=== PATIENT | female | born 1945 | race American Indian/Alaskan Native ===

== ENCOUNTER 2016-12-29 08:35 | Outpatient (CLI) | payer MEDICARE, OTHER ==
[2016-12-29 09:02] LABS: Basophils % (Auto) 0.5 % (0.0-1.8); Eosinophils % (Auto) 2.5 % (0.0-4.3); Hematocrit 39.1 % (30.3-42.9); Hemoglobin 12.9 gm/dl (10.1-14.3); Mean Corpuscular HGB Conc 33 % (30-34); Mean Corpuscular Hemoglobin 32 pg (28-32); Mean Corpuscular Volume 96 fl (79-97); Platelet Count 238 K/mm3 (140-440); Red Blood Count 4.08 M/mm3 (3.65-5.03); White Blood Count 6.6 K/mm3 (4.5-11.0)
[2016-12-29 09:14] LABS: Blood Urea Nitrogen 16 mg/dL (7-17); Calcium 9.3 mg/dL (8.4-10.2); Carbon Dioxide 25 mmol/L (22-30); Glucose 118 mg/dL (65-100)
[2016-12-29 09:15] LABS: Anion Gap 18 mmol/L; Chloride 100.2 mmol/L (98-107); Phosphorous 3.1 mg/dL (2.5-4.5); Potassium 4.1 mmol/L (3.6-5.0); Sodium 139 mmol/L (137-145)
[2017-01-01 07:29] LABS: Vitamin D, 25-OH, Total 18 ng/mL (30-100)
== END 2016-12-29 08:36 | disposition home or self-care (01) ==
LOC: LAB 08:35
PROVIDERS: ATTEND Internal Medicine Nephrology
DX: I12.9 Hypertensive chronic kidney disease with stage 1 through stage 4 chronic kidney disease, or unspecified chronic kidney disease (principal); N18.2 Chronic kidney disease, stage 2 (mild); N28.1 Cyst of kidney, acquired; E55.9 Vitamin D deficiency, unspecified; F17.200 Nicotine dependence, unspecified, uncomplicated
CPT/HCPCS: 36415; 80048; 82040; 82043; 82306; 84100; 85025

== ENCOUNTER 2017-05-03 11:36 | Emergency (ER) | payer MEDICARE, OTHER ==
[2017-05-03 12:24] VITALS: BP 142/69
--- NOTE | 2017-05-03 12:24 | Emergency Department Report ---
Chief Complaint: Extremity Injury, Lower Stated Complaint: POSS FRACTURED ANKLE Time Seen by Provider: 05/03/17 12:22 - HPI History of Present Illness: PT states she tripped down stairs and hurt her left ankle. - ROS Review of Systems: - head injury - loc - Exam Physical Exam: PT is alert and appropriate. + swelling to L ankle MSE screening note: Focused history and physical exam performed. Due to findings the following was ordered: xr ED Disposition for MSE Condition: Stable
--- NOTE | 2017-05-03 13:42 | XRay Report ---
LEFT ANKLE RADIOGRAPHS INDICATION: Pain and swelling, status post fall. COMPARISON: None similar. FINDINGS: AP, lateral and oblique left ankle radiographs demonstrate intact mortise, malleoli and talar dome contour. Slight deformity along the left distal fibular shaft, approximately 4.3 cm cephalad to its tip favored old. Mild diffuse ankle soft tissue swelling though suspected, lateral more than medial. Soft tissue swelling along dorsum of the foot may also be noted. Demineralized bones. CONCLUSION: Mild ankle and foot soft tissue swelling without acute displaced left ankle fracture identified. Left distal fibular shaft may also be correlated for clinically, as described above. Thank you for the opportunity to participate in this patient's care.
--- NOTE | 2017-05-03 14:30 | Emergency Department Report ---
ED Lower Extremity HPI - General Chief Complaint: Extremity Injury, Lower Stated Complaint: POSS FRACTURED ANKLE Time Seen by Provider: 05/03/17 12:22 Source: patient Mode of arrival: Wheelchair Limitations: No Limitations - History of Present Illness Initial Comments: Patient reports she accidentally hit her left foot on the door frame after she suffered a fall down the stairs. She denies LOC MD Complaint: foot injury (LEFT) Onset/Timin -: days(s) Injury: Foot: Left Type of Injury: unknown Place: home Severity: severe Severity scale (0 -10): 10 Improves With: rest Worsens With: weight bearing Context: fall Other Symptoms: other (none) Associated Symptoms: swelling, able to partially bear weight. denies: snap/pop sensation, numbness, tingling, unable to bear weight Treatments Prior to Arrival: other (none) - Related Data Home Medications Medication Instructions Recorded Confirmed Last Taken Clopidogrel Bisulfate [Plavix] 75 mg PO DAILY 12/18/13 12/02/15 12/01/15 75mg Gabapentin [Neurontin] 300 mg PO BID PRN 12/18/13 12/02/15 12/01/15 300mg Lisinopril [Zestril TAB] 20 mg PO DAILY 12/18/13 12/02/15 12/02/15 20mg Temazepam [Restoril] 30 mg PO HS 12/18/13 12/02/15 12/01/15 30mg Vit D3 & K/Berberine HCl/Hops 1 tab PO DAILY 12/18/13 12/02/15 12/01/15 [Ostera Tablet] 1 amLODIPine [Norvasc] 10 mg PO DAILY 12/18/13 12/02/15 12/01/15 10mg traMADol [Ultram 50 MG tab] 100 mg PO DAILY PRN 12/18/13 12/02/15 12/02/15 100mg Albuterol *Only Ed* [Proventil 2.5 mg IH DAILY 02/19/14 12/02/15 12/01/15 0.5% NEBS] 2.5mg Isosorbide Dinitrate 30 mg PO DAILY 12/02/15 12/02/15 12/01/15 30mg Lansoprazole [Prevacid] 30 mg PO DAILY 12/02/15 12/02/15 12/01/15 30mg PARoxetine [Paxil] 20 mg PO DAILY 12/02/15 12/02/15 12/02/15 20mg Pravastatin (Nf) [Pravachol] 20 mg PO DAILY 12/02/15 12/02/15 12/01/15 20mg Allergies Allergy/AdvReac Type Severity Reaction Status Date / Time aspirin AdvReac Vomiting Verified 12/02/15 11:25 Sulfa (Sulfonamide AdvReac Hives;INCREASED Verified 12/18/13 06:28 Antibiotics) HEART RATE ED Review of Systems ROS: Stated complaint: POSS FRACTURED ANKLE Other details as noted in HPI Constitutional: denies: chills, diaphoresis, fever Respiratory: denies: cough, orthopnea, shortness of breath, SOB with exertion, SOB at rest, stridor, wheezing Cardiovascular: denies: chest pain, palpitations, dyspnea on exertion, orthopnea , edema, syncope, paroxysmal nocturnal dyspnea Gastrointestinal: denies: abdominal pain, nausea, vomiting, diarrhea, constipation Musculoskeletal: arthralgia (right ankle). denies: back pain, joint swelling Skin: denies: rash, lesions, change in color Neurological: denies: headache, weakness Psychiatric: denies: anxiety, depression Hematological/Lymphatic: denies: easy bleeding, easy bruising, swollen glands ED Past Medical Hx - Past Medical History Hx Hypertension: Yes Hx Diabetes: (IN PAST ORAL MED DC'D 2 YRS AGO AFTER CHANGING HER DIET) Hx GERD: Yes Hx Liver Disease: No Hx Renal Disease: No Hx Arthritis: Yes Hx Asthma: Yes Hx COPD: Yes - Surgical History Past Surgical History?: Yes Hx Appendectomy: Yes Additional Surgical History: KNEE REPLACEMENT. LUMPECTOMY LT - Social History Smoking Status: Current Every Day Smoker Substance Use Type: None - Medications Home Medications: Home Medications Medication Instructions Recorded Confirmed Last Taken Type Clopidogrel Bisulfate [Plavix] 75 mg PO DAILY 12/18/13 12/02/15 12/01/15 History 75mg Gabapentin [Neurontin] 300 mg PO BID PRN 12/18/13 12/02/15 12/01/15 History 300mg Lisinopril [Zestril TAB] 20 mg PO DAILY 12/18/13 12/02/15 12/02/15 History 20mg Temazepam [Restoril] 30 mg PO HS 12/18/13 12/02/15 12/01/15 History 30mg Vit D3 & K/Berberine HCl/Hops 1 tab PO DAILY 12/18/13 12/02/15 12/01/15 History [Ostera Tablet] 1 amLODIPine [Norvasc] 10 mg PO DAILY 12/18/13 12/02/15 12/01/15 History 10mg traMADol [Ultram 50 MG tab] 100 mg PO DAILY PRN 12/18/13 12/02/15 12/02/15 History 100mg Albuterol *Only Ed* [Proventil 2.5 mg IH DAILY 02/19/14 12/02/15 12/01/15 History 0.5% NEBS] 2.5mg Isosorbide Dinitrate 30 mg PO DAILY 12/02/15 12/02/15 12/01/15 History 30mg Lansoprazole [Prevacid] 30 mg PO DAILY 12/02/15 12/02/15 12/01/15 History 30mg PARoxetine [Paxil] 20 mg PO DAILY 12/02/15 12/02/15 12/02/15 History 20mg Pravastatin (Nf) [Pravachol] 20 mg PO DAILY 12/02/15 12/02/15 12/01/15 History 20mg ED Physical Exam - General Limitations: No Limitations General appearance: alert, in no apparent distress - Head Head exam: Present: atraumatic - Neck Neck exam: Present: normal inspection, full ROM. Absent: tenderness, meningismus, lymphadenopathy, thyromegaly - Respiratory Respiratory exam: Present: normal lung sounds bilaterally. Absent: respiratory distress, wheezes, rales, rhonchi, stridor, chest wall tenderness, accessory muscle use, decreased breath sounds, prolonged expiratory - Cardiovascular Cardiovascular Exam: Present: regular rate, normal rhythm, normal heart sounds. Absent: systolic murmur, diastolic murmur, rubs, gallop - Extremities Exam Extremities exam: Present: normal inspection, full ROM, normal capillary refill. Absent: tenderness, pedal edema, joint swelling - Expanded Lower Extremity Exam Right Hip exam: Present: pelvic stability Lower Leg exam: Present: normal inspection, full ROM. Absent: tenderness, swelling, abrasion, laceration, ecchymosis, deformity, crepidus, erythema, palpable cord, Harman's sign Ankle exam: Present: full ROM, tenderness (medial and lateral), swelling. Absent: abrasion, laceration, ecchymosis, deformity, crepidus, dislocation, erythema, anterior draw sign Foot/Toe exam: Present: normal inspection, full ROM Neuro vascular tendon exam: Present: no vascular compromise. Absent: pulse deficit, abnormal cap refill, motor deficit, sensory deficit, tendon deficit, extremity cold to touch, pallor, abnormal 2-point discrimination, decreased fine /light touch, foot drop, peroneal nerve deficit, significant pain with passive ROM of distal joint Gait: Positive: observed and limited by pain - Back Exam Back exam: Present: normal inspection, full ROM. Absent: CVA tenderness (R), CVA tenderness (L) - Neurological Exam Neurological exam: Present: alert, oriented X3, CN II-XII intact, normal gait, reflexes normal. Absent: motor sensory deficit - Psychiatric Psychiatric exam: Present: normal affect, normal mood - Skin Skin exam: Present: warm, dry, intact, normal color. Absent: rash ED Course Vital Signs 05/03/17 12:20 Temperature 98.5 F Pulse Rate 79 Respiratory 16 Rate Blood Pressure 142/69 O2 Sat by Pulse 98 Oximetry - Reevaluation(s) Reevaluation #1: 05/03/17 14:32 radiology study ordered ED Lower Extremity MDM - Lab Data Vital Signs 05/03/17 12:20 Temperature 98.5 F Pulse Rate 79 Respiratory 16 Rate Blood Pressure 142/69 O2 Sat by Pulse 98 Oximetry - Radiology Data Radiology results: image reviewed LEFT ANKLE RADIOGRAPHS INDICATION: Pain and swelling, status post fall. COMPARISON: None similar. FINDINGS: AP, lateral and oblique left ankle radiographs demonstrate intact mortise, malleoli and talar dome contour. Slight deformity along the left distal fibular shaft, approximately 4.3 cm cephalad to its tip favored old. Mild diffuse ankle soft tissue swelling though suspected, lateral more than medial. Soft tissue swelling along dorsum of the foot may also be noted. Demineralized bones. CONCLUSION: Mild ankle and foot soft tissue swelling without acute displaced left ankle fracture identified. Left distal fibular shaft may also be correlated for clinically, as described above. - Medical Decision Making During the course of ED, radiology study was ordered. The study revealed mild ankle and foot soft tissue swelling without acute displaced left ankle fracture. Patient was sent home with an ankle splint and referral to follow up with the selective referral given at discharge. Patient reports she has pain medication and crutches at home from a previous injury. - Differential Diagnosis Left Foot Pain, Left Foot Fracture Critical care attestation.: If time is entered above; I have spent that time in minutes in the direct care of this critically ill patient, excluding procedure time. ED Disposition Clinical Impression: Foot pain, left Disposition: DC-01 TO HOME OR SELFCARE Is pt being admited?: No Does the pt Need Aspirin: No Condition: Stable Instructions: Foot Sprain (ED) Additional Instructions: Take medication as directed. Follow up with the selective referral given at discharge. Wear splint for comfort Referrals: LISE RICE MD [Primary Care Provider] - 3-5 Days SHEKHAR GILMORE MD [Staff Physician] - 3-5 Days Time of Disposition: 14:37
== END 2017-05-03 14:49 | disposition home or self-care (01) ==
LOC: ED 11:36
DX: M79.672 Pain in left foot (principal); I10 Essential (primary) hypertension; K21.9 Gastro-esophageal reflux disease without esophagitis; M19.90 Unspecified osteoarthritis, unspecified site; J45.909 Unspecified asthma, uncomplicated; F17.200 Nicotine dependence, unspecified, uncomplicated; Z88.2 Allergy status to sulfonamides; Z88.6 Allergy status to analgesic agent; Z79.01 Long term (current) use of anticoagulants; W22.8XXA Striking against or struck by other objects, initial encounter; Y93.89 Activity, other specified; Y99.8 Other external cause status; Y92.009 Unspecified place in unspecified non-institutional (private) residence as the place of occurrence of the external cause

== ENCOUNTER 2017-08-25 10:51 | Outpatient (CLI) | payer MEDICARE, OTHER ==
--- NOTE | 2017-08-25 16:58 | Cat Scan Report ---
FINAL REPORT PROCEDURE: CT ABDOMEN PELVIS WO/W CON TECHNIQUE: Computerized axial tomography of the abdomen and pelvis was performed without contrast followed by computerized axial tomography of the abdomen and pelvis after the IV injection of iodinated nonionic contrast. DLP 2719.50 mGy-cm. HISTORY: Benign essential microscopic hematuria. COMPARISON: No prior studies are available for comparison. FINDINGS: Visualized lower thorax: Coronary artery disease. Bibasilar interlobular septal thickening and ground-glass opacities. Mild left lower lobe bronchiectasis. 5 millimeter left lower lobe pulmonary nodule. Liver: Normal size and attenuation. Spleen: Normal size and attenuation. Gallbladder and biliary system: Normal. Pancreas: Normal. Adrenals: Normal. Kidneys: 3.2 cm low-attenuation lesion off the midpole of the left kidney. Smaller bilateral renal low-attenuation lesions. GI tract: Significant of the distended loop of small bowel in the mid abdomen, which then tapers to a possible transition of narrowed/strictured small bowel although could be possibly nondistended small bowel. More distal small bowel is more normal caliber and remainder of the small bowel appears relatively unremarkable. Thickening of the distal stomach and duodenum. Normal appendix not confidently seen. Cecum distended with stool. Ascending colon demonstrates fatty infiltration of the wall. Colonic diverticulosis. Lymph nodes and mesentery: Normal. Vasculature: Normal. Bladder: Normal. Reproductive Organs: Hysterectomy. Peritoneum: No free fluid. Musculoskeletal structures: Osteopenia. Multilevel osteophytes. Moderate to severe L1-2 disc space narrowing, endplate changes, and vacuum disc change. Slight anterolisthesis. Similar findings at L2-3 with slight retrolisthesis. Grade 1 anterolisthesis at L5-S1. Mild L5-S1 facet arthropathy. Other: Pelvic phleboliths. IMPRESSION: Coronary artery disease. Bibasilar opacities, consider mild pneumonitis or interstitial lung change. 5 millimeter left lower lobe pulmonary nodule. Consider dedicated thoracic imaging for further characterization if there is continued clinical concern. Low-attenuation renal lesions, may represent cyst. Consider confirmation with renal ultrasound. Significantly distended loop of small bowel in the mid abdomen, which may go to a point of stricture, although this could represent nondistended small bowel. Consider focal ileus, cannot exclude obstruction. Consider further evaluation including followup radiographs or CT scan with oral contrast if there is continued clinical concern. Thickening of the distal stomach and duodenum, consider mild gastritis and/or duodenitis. Fatty infiltration of the ascending colon, can be seen with steroid usage or obesity. Colonic diverticulosis.
== END 2017-08-25 10:52 | disposition home or self-care (01) ==
LOC: CT 10:51
PROVIDERS: ATTEND Urology
DX: K57.30 Diverticulosis of large intestine without perforation or abscess without bleeding (principal); R31.1 Benign essential microscopic hematuria; I25.10 Atherosclerotic heart disease of native coronary artery without angina pectoris; J47.9 Bronchiectasis, uncomplicated; R91.1 Solitary pulmonary nodule; N28.89 Other specified disorders of kidney and ureter; K63.89 Other specified diseases of intestine; M85.80 Other specified disorders of bone density and structure, unspecified site; M12.88 Other specific arthropathies, not elsewhere classified, other specified site; F17.200 Nicotine dependence, unspecified, uncomplicated; Z90.710 Acquired absence of both cervix and uterus
CPT/HCPCS: 36415; 74178; 82565; 84520; Q9967

== ENCOUNTER 2017-11-02 15:13 | Outpatient (CLI) | payer MEDICARE, OTHER ==
--- NOTE | 2017-11-02 20:58 | XRay Report ---
FINAL REPORT PROCEDURE: XR SHOULDER BILAT 2+V TECHNIQUE: Three views of each shoulder HISTORY: PAIN IN LEFT RIGHT SHOULDER COMPARISON: No prior studies are available for comparison. FINDINGS: Moderate degenerative changes of the shoulders bilaterally. No evidence of acute fracture seen at this time. Superior lateral humeral defects seen bilaterally. Each humeral head is slightly low lying right greater than left. No fracture IMPRESSION: Degenerative changes with no fracture
== END 2017-11-02 15:14 | disposition home or self-care (01) ==
LOC: XRAY 15:13
PROVIDERS: ATTEND Physical Medicine & Rehabilitation
DX: M19.011 Primary osteoarthritis, right shoulder (principal); M19.012 Primary osteoarthritis, left shoulder

== ENCOUNTER 2018-01-06 11:48 | Outpatient (CLI) | payer MEDICARE, OTHER ==
[2018-01-06 12:36] LABS: Hemoglobin 13.2 gm/dl (10.1-14.3); Mean Corpuscular HGB Conc 33 % (30-34); Mean Corpuscular Hemoglobin 32 pg (28-32); Mean Corpuscular Volume 98 fl (79-97); Platelet Count 211 K/mm3 (140-440); Red Cell Distribution Width 18.4 % (13.2-15.2)
[2018-01-06 12:48] LABS: INR 0.89 (0.87-1.13); Partial Thromboplastin Time 23.9 Sec. (24.2-36.6)
--- NOTE | 2018-01-06 12:55 | XRay Report ---
Chest 2 views: History: COPD. Findings: Normal cardiomediastinal silhouette the trachea is midline. No consolidation, pneumothorax or pleural effusion. Impression: No acute cardiopulmonary findings.
[2018-01-06 12:56] LABS: Calcium 9.5 mg/dL (8.4-10.2); Chol/HDL Ratio 2.61 %
--- NOTE | 2018-01-06 14:46 | Cat Scan Report ---
CT scan of chest without IV contrast: History: Left lower pulmonary nodule. Findings: No endobronchial or mediastinal mass. No mediastinal, hilar or axillary adenopathy. No pleural pericardial effusion. Minimal pleural thickening bilaterally. There is 4 mm pleural-based nodule identified in left lower lobe on series 2 image 79. Mild centrilobular emphysema. Apical scarring and pleural thickening. Impression: A Small noncalcified pulmonary nodule left lung. Centrilobular emphysema.
== END 2018-01-06 11:49 | disposition home or self-care (01) ==
LOC: CT 11:48
PROVIDERS: ATTEND Internal Medicine
DX: J43.9 Emphysema, unspecified (principal); J98.4 Other disorders of lung; R91.1 Solitary pulmonary nodule; I10 Essential (primary) hypertension; Z79.899 Other long term (current) drug therapy
CPT/HCPCS: 36415; 71046; 71260; 80053; 80061; 84443; 85027; 85610; 85730; Q9967

== ENCOUNTER 2019-06-15 12:59 | Outpatient (CLI) | payer MEDICARE, OTHER | END 2019-06-15 13:00 | disposition home or self-care (01) | LOC: LAB 12:59 | PROVIDERS: ATTEND Internal Medicine Nephrology | DX: I12.9 Hypertensive chronic kidney disease with stage 1 through stage 4 chronic kidney disease, or unspecified chronic kidney disease (principal); N18.2 Chronic kidney disease, stage 2 (mild); R31.9 Hematuria, unspecified; E78.00 Pure hypercholesterolemia, unspecified; J44.9 Chronic obstructive pulmonary disease, unspecified; K21.9 Gastro-esophageal reflux disease without esophagitis; Z90.710 Acquired absence of both cervix and uterus | CPT/HCPCS: 87086 ==

== ENCOUNTER 2019-07-13 11:13 | Outpatient (CLI) | payer MEDICARE, OTHER ==
[2019-07-13 12:05] LABS: Albumin 3.8 g/dL (3.9-5); Calcium 9.7 mg/dL (8.4-10.2)
--- NOTE | 2019-07-13 13:41 | Cat Scan Report ---
CT CHEST WITH CONTRAST INDICATION / CLINICAL INFORMATION: MEDIASTINAL LYMPHADENOPATHY R91.1. TECHNIQUE: Axial CT images were obtained through the chest after 100 cc of Omnipaque 300 IV contrast. Sagittal a nd coronal reformatted images. All CT scans at this location are performed using CT dose reduction fo r ALARA by means of automated exposure control. COMPARISON: 01/09/2019 FINDINGS: HEART: No significant abnormality. THORACIC AORTA: No significant abnormality. MEDIASTINUM and VENKAT: No significant abnormality. No mediastinal adenopathy is demonstrated. LUNGS: No acute air space or interstitial disease. Moderate emphysematous changes are noted in the u pper lung zones. PLEURA: No significant pleural effusion. No pneumothorax. Previously described subpleural nodule at t he left lung base is not seen on today's exam. No suspicious pulmonary nodule or mass. SKELETAL SYSTEM: No significant abnormality. UPPER ABDOMEN: Nothing acute. Cholecystectomy changes and 2 left renal cysts. ADDITIONAL FINDINGS: None. IMPRESSION: Emphysematous changes. No thoracic adenopathy or mass is detected. Signer Name: Real Llody Jr, MD Signed: 07/13/2019 1:37 PM Workstation Name: [id number]
== END 2019-07-13 11:14 | disposition home or self-care (01) ==
LOC: CT 11:13
PROVIDERS: ATTEND Internal Medicine
DX: J43.9 Emphysema, unspecified (principal); R91.1 Solitary pulmonary nodule; Z90.49 Acquired absence of other specified parts of digestive tract
CPT/HCPCS: 36415; 71260; 80053; Q9967

== ENCOUNTER 2019-08-07 10:59 | Inpatient (IN) | payer MEDICARE, OTHER ==
--- NOTE | 2019-08-07 11:16 | Emergency Department Report ---
Blank Doc - Documentation Documentation: 73-year-old female that presents with fall while changing the light bulb with LOC. Had headache and neck pain. MD sent patient also for SOB and crackles in lungs. This initial assessment/diagnostic orders/clinical plan/treatment(s) is/are subject to change based on patient's health status, clinical progression and re- assessment by fellow clinical providers in the ED. Further treatment and workup at subsequent clinical providers discretion. Patient/guardians urged not to elope from the ED as their condition may be serious if not clinically assessed and managed. Initial orders include: 1- Patient sent to MAIN ED for further evaluation and treatment 2- labs 3- cervical collar 4- CT head/neck 5- EKG
--- NOTE | 2019-08-07 12:49 | Emergency Department Report ---
HPI - General Chief Complaint: Fall Time Seen by Provider: 08/07/19 11:12 - HPI HPI: 73-year-old female presents to the emergency department with complaint of a headache, left-sided neck pain, back pain after falling off of a ladder from about 5 feet in the air on Wednesday night, 2 days ago. The patient did hit her head after falling backwards and had a brief loss of consciousness. She did not come in at that time as she thought she would improved with rest at home but she still has the previously mentioned symptoms. The patient is not on any blood thinners but is on Plavix. She has a past medical history of arthritis, asthma, COPD on home O2 at night, diet-controlled diabetes, GERD, hypertension. She has not taken anything for her symptoms. The patient was also encouraged to come in to be seen for her breathing and she has been having some crackles since her fall. She has a nebulizer at home that she has tried without much relief. ED Past Medical Hx - Past Medical History Previous Medical History?: Yes Hx Hypertension: Yes Hx Diabetes: (IN PAST ORAL MED DC'D 2 YRS AGO AFTER CHANGING HER DIET) Hx GERD: Yes Hx Liver Disease: No Hx Renal Disease: No Hx Arthritis: Yes Hx Asthma: Yes Hx COPD: Yes - Surgical History Past Surgical History?: Yes Hx Appendectomy: Yes Additional Surgical History: KNEE REPLACEMENT. LUMPECTOMY LT - Social History Smoking Status: Never Smoker Substance Use Type: None - Medications Home Medications: Home Medications Medication Instructions Recorded Confirmed Last Taken Type Clopidogrel Bisulfate [Plavix] 75 mg PO DAILY 12/18/13 08/07/19 12/01/15 History 75 mg Gabapentin [Neurontin] 300 mg PO BID PRN 12/18/13 08/07/19 12/01/15 History 300 mg Lisinopril [Zestril TAB] 20 mg PO DAILY 12/18/13 08/07/19 12/02/15 History 20 mg Temazepam [Restoril] 30 mg PO HS 12/18/13 08/07/19 12/01/15 History 30 mg Vit D3-Vit K/Berberine/Hops 1 tab PO DAILY 12/18/13 08/07/19 12/01/15 History [Ostera Tablet] 1 amLODIPine 10 mg PO DAILY 12/18/13 08/07/19 12/01/15 History 10 mg traMADoL [Ultram 50 MG tab] 100 mg PO DAILY PRN 12/18/13 08/07/19 12/02/15 History 100 mg Albuterol *Only Ed* [Proventil 2.5 mg IH DAILY 02/19/14 08/07/19 12/01/15 History 0.5% NEBS] 2.5mg Isosorbide Dinitrate 30 mg PO DAILY 12/02/15 08/07/19 12/01/15 History 30 mg Lansoprazole [Prevacid] 30 mg PO DAILY 12/02/15 08/07/19 12/01/15 History 30 mg PARoxetine [Paxil] 20 mg PO DAILY 12/02/15 08/07/19 12/02/15 History 20 mg Pravastatin [Pravachol] 20 mg PO DAILY 12/02/15 08/07/19 12/01/15 History 20 mg ED Review of Systems ROS: Stated complaint: FALL OFF LADDER/PAIN Other details as noted in HPI Comment: All other systems reviewed and negative Constitutional: denies: chills, fever Eyes: denies: eye pain, vision change ENT: denies: ear pain, throat pain Respiratory: cough, wheezing Cardiovascular: denies: chest pain, palpitations Gastrointestinal: denies: abdominal pain, vomiting Genitourinary: denies: dysuria, discharge Musculoskeletal: back pain, myalgia Skin: denies: rash, lesions Neurological: headache. denies: numbness, paresthesias Physical Exam - Physical Exam Vital Signs: Vital Signs 08/07/19 08/07/19 11:14 11:44 Temperature 98.4 F Pulse Rate 97 H 85 Respiratory 24 19 Rate Blood Pressure 192/111 Blood Pressure 220/137 [Left] O2 Sat by Pulse 98 97 Oximetry Physical Exam: GENERAL: The patient is well-developed well-nourished. HENT: Normocephalic. Atraumatic. Patient has moist mucous membranes. EYES: Extraocular motions are intact. Pupils equal reactive to light bilaterally. No nystagmus. NECK: Supple. Trachea is midline. There is both midline and paraspinal tenderness to palpation but no step-off or deformity. CHEST/LUNGS: Clear to auscultation. There is no respiratory distress noted. HEART/CARDIOVASCULAR: Regular. There is mild tachycardia. There is no murmur. ABDOMEN: Abdomen is soft, nontender. Patient has normal bowel sounds. There is no abdominal distention. SKIN: Skin is warm and dry. NEURO: The patient is awake, alert, and oriented. The patient is cooperative. The patient has no focal neurologic deficits. Normal speech. Cranial nerves II through XII grossly intact. MUSCULOSKELETAL: There is no tenderness or deformity. There is no limitation range of motion. There is no evidence of acute injury. BACK: There is both midline and bilateral paraspinal thoracic and lumbar tenderness to palpation but no step-off or deformity. ED Course Vital Signs 08/07/19 08/07/19 11:14 11:44 Temperature 98.4 F Pulse Rate 97 H 85 Respiratory 24 19 Rate Blood Pressure 192/111 Blood Pressure 220/137 [Left] O2 Sat by Pulse 98 97 Oximetry - Reevaluation(s) Reevaluation #1: 08/07/19 15:37 While the patient did not have any significant complaint of chest pain through triage, the patient began complaining of some midsternal chest pain while in the emergency department. Patient has very uncontrolled blood pressure. EKG and troponins have been ordered, as well as a d-dimer. ED Medical Decision Making - Lab Data Result diagrams: 08/07/19 12:45 08/07/19 12:45 - EKG Data -: EKG Interpreted by Me EKG shows normal: sinus rhythm (PACs), axis, intervals, QRS complexes, ST-T waves Rate: normal - EKG Data When compared to previous EKG there are: previous EKG unavailable Interpretation: normal EKG - Radiology Data Radiology results: report reviewed, image reviewed interpreted by me: Chest x-ray does not show any acute process. There are no pleural effusions, obvious pneumonia and there is no pneumothorax. XR spine lumbosacral 2-3V INDICATION / CLINICAL INFORMATION: fall, back pain. COMPARISON: 01/08/2016 FINDINGS: BONES/JOINT(S): There is a mild approximately 25% superior endplate compression fracture of L1. This is age-indeterminate but is definitely new compared with 01/08/2016. Vertebral body heights otherwise appear maintained within normal limits. There is similar moderate degenerative disc disease at T12-L1 and L1-L2 with disc height loss and reactive endplate sclerosis and osteophyte formation. There is unchanged grade 1 anterolisthesis of L4 and L5. SOFT TISSUES: No significant abnormality. ADDITIONAL FINDINGS: None. THORACIC SPINE 3 VIEWS INDICATION / CLINICAL INFORMATION: pain with fall. COMPARISON: None available. FINDINGS: VERTEBRAE: No fracture. No significant malalignment. DISC SPACES:No significant abnormality. ADDITIONAL FINDINGS: Osteopenia. IMPRESSION: 1. No significant abnormality. CT cervical spine without contrast INDICATION: LOC with fall. TECHNIQUE: Axial imaging performed through the cervical spine without the use of contrast. Sagittal and coronal reconstructed images were also reviewed. All CT scans at this location are performed using CT dose reduction for ALARA by means of automated exposure control. COMPARISON: None FINDINGS: Alignment: There is fixed mild reversal of normal cervical lordosis with 2 mm retrolisthesis of C3 on C4. Bones: There is no acute osseous abnormality. Anterior fixation devices are present at C4-5 and C5-6 without gross complication. Mild discogenic DJD is seen above and below the levels of the construct and there is mild facet arthropathy. Soft tissues: No acute soft tissue abnormality identified. Incidental note made of bulky atherosclerotic disease in the carotid bulbs. There is also mild emphysema in the lung apices. IMPRESSION: 1. No acute abnormality. 2. Incidental findings as above. CT head without contrast HISTORY: LOC with fall. TECHNIQUE: Axial imaging performed from the skull apex through the skull base without the use of contrast. All CT scans at this location are performed using CT dose reduction for ALARA by means of automated exposure control. COMPARISON: None FINDINGS: Parenchyma: No acute intracranial hemorrhage or parenchymal abnormality. Ventricles: There is mild diffuse brain atrophy with commensurate ventricular enlargement which is likely age appropriate. Soft tissues: Soft tissues including the orbits appear normal. Bones: No acute osseous abnormality. Sinuses: Sinuses and mastoid air cells are clear. IMPRESSION: No acute abnormality. CTA CHEST WITH IV CONTRAST INDICATION: elevated d dimer. Acute onset chest pain with dyspnea TECHNIQUE: Axial CT images were obtained through the chest after injection of 100 mL IV contrast. 3 plane MIP reconstructions were produced. All CT scans at this location are performed using CT dose reduction for ALARA by means of automated exposure control. COMPARISON: None available. FINDINGS: PULMONARY ARTERIES: No pulmonary emboli. AORTA AND ARTERIES: No acute abnormality. MEDIASTINUM: No mass, lymphadenopathy or other significant abnormality. The heart is normal in size without a pericardial effusion. The trachea and main bronchi are patent and normal in caliber. LUNGS: Emphysema with basilar atelectasis.. ADDITIONAL FINDINGS: None. UPPER ABDOMEN: No acute findings. BONES: No significant osseous abnormality. IMPRESSION: 1. No CT evidence for pulmonary embolism. 2. Emphysema with bibasilar opacities likely to be related to atelectasis. - Medical Decision Making This patient initially came in with a complaint of a headache, neck pain and back pain after a fall on Wednesday, 2 days prior to presentation, from a height of about 5 [address] scan of the head and cervical spine were done that did not show any acute processes. X-rays of the thoracic and lumbar spine showed a L1 compression fracture of about 25% height loss. Chest x-ray did not show any pleural effusions, pneumonia, pneumothorax, focal consolidation, or any other acute process. The patient does have a history of hypertension and presents with extremely elevated blood pressure. Part of this may be secondary to her discomfort. She was given labetalol, hydralazine and her blood pressure came down to a slightly more reasonable level. However, while the patient did have this elevated blood pressure, and in the middle of her workup from her trauma, patient began complaining of mid sternal chest pain. It was not reproducible and did not appear consistent with costochondritis. An EKG was done that did not show any signs of ST elevation TX. Troponins and d-dimer is were ordered. Negative troponins 2 thus far. D-dimer was slightly elevated a nd equivocal so CT angiography was repleted that did not show any signs of ST elevation TX. Despite pain medication, the patient still complains of back pain and chest pain. The patient will be admitted to the hospital for further evaluation and treatment was accepted for admission by the hospitalist, Dr. Loredo. - Differential Diagnosis compression fracture, TX, PE, rib fractures Critical Care Time: No Critical care attestation.: If time is entered above; I have spent that time in minutes in the direct care of this critically ill patient, excluding procedure time. ED Disposition Clinical Impression: Acute chest pain, Bronchitis, Hypertensive urgency Compression fracture of L1 vertebra Qualifiers: Encounter type: initial encounter Qualified Code(s): S32.010A - Wedge compression fracture of first lumbar vertebra, initial encounter for closed fracture Disposition: OP ADMIT IP TO THIS HOSP Is pt being admited?: Yes Condition: Fair Time of Disposition: 15:38
--- NOTE | 2019-08-07 12:59 | Cat Scan Report ---
CT head without contrast HISTORY: LOC with fall. TECHNIQUE: Axial imaging performed from the skull apex through the skull base without the use of con trast. All CT scans at this location are performed using CT dose reduction for ALARA by means of aut omated exposure control. COMPARISON: None FINDINGS: Parenchyma: No acute intracranial hemorrhage or parenchymal abnormality. Ventricles: There is mild diffuse brain atrophy with commensurate ventricular enlargement which is l ikely age appropriate. Soft tissues: Soft tissues including the orbits appear normal. Bones: No acute osseous abnormality. Sinuses: Sinuses and mastoid air cells are clear. IMPRESSION: No acute abnormality. Signer Name: Enrique Acevedo MD Signed: 08/07/2019 12:55 PM Workstation Name: [id number]
--- NOTE | 2019-08-07 13:05 | Cat Scan Report ---
CT cervical spine without contrast INDICATION: LOC with fall. TECHNIQUE: Axial imaging performed through the cervical spine without the use of contrast. Sagittal and coronal reconstructed images were also reviewed. All CT scans at this location are performed us ing CT dose reduction for ALARA by means of automated exposure control. COMPARISON: None FINDINGS: Alignment: There is fixed mild reversal of normal cervical lordosis with 2 mm retrolisthesis of C3 o n C4. Bones: There is no acute osseous abnormality. Anterior fixation devices are present at C4-5 and C5- 6 without gross complication. Mild discogenic DJD is seen above and below the levels of the construct and there is mild facet arthr opathy. Soft tissues: No acute soft tissue abnormality identified. Incidental note made of bulky atheroscler otic disease in the carotid bulbs. There is also mild emphysema in the lung apices. IMPRESSION: 1. No acute abnormality. 2. Incidental findings as above. Signer Name: Enrique Acevedo MD Signed: 08/07/2019 1:01 PM Workstation Name: [id number]
[2019-08-07 13:32] LABS: Basophils # (Auto) 0.1 K/mm3 (0.0-0.1); Basophils % (Auto) 0.8 % (0.0-1.8); Eosinophils % (Auto) 0.2 % (0.0-4.3); Hematocrit 40.1 % (30.3-42.9); Hemoglobin 13.6 gm/dl (10.1-14.3); Lymphocytes # (Auto) 1.4 K/mm3 (1.2-5.4); Mean Corpuscular HGB Conc 34 % (30-34); Mean Corpuscular Volume 99 fl (79-97); Monocytes # (Auto) 0.6 K/mm3 (0.0-0.8); Monocytes % (Auto) 8.5 % (0.0-7.3); Red Blood Count 4.04 M/mm3 (3.65-5.03); Red Cell Distribution Width 18.4 % (13.2-15.2)
[2019-08-07 13:41] LABS: INR 0.91 (0.87-1.13)
[2019-08-07 13:43] LABS: Partial Thromboplastin Time 22.1 Sec. (24.2-36.6)
[2019-08-07] MEDS ORDERED: ONDANSETRON 4 MG/2 ML INJ IV ONE (13:55)
[2019-08-07 13:56] LABS: BUN/Creatinine Ratio 18; Blood Urea Nitrogen 16 mg/dL (7-17); Calcium 9.4 mg/dL (8.4-10.2)
[2019-08-07] MEDS ORDERED: hydrALAZINE 20 MG/1 ML INJ IV ONE (13:56)
[2019-08-07 13:57] LABS: Alanine Aminotransferase 18 units/L (7-56); Albumin 3.8 g/dL (3.9-5); Hemolysis Index 34
--- NOTE | 2019-08-07 14:07 | XRay Report ---
CHEST 1 VIEW 08/07/2019 1:15 PM INDICATION / CLINICAL INFORMATION: SOB. COMPARISON: Chest CT on 07/13/2019 FINDINGS: SUPPORT DEVICES: None. HEART / MEDIASTINUM: Normal heart size. Atherosclerosis in the thoracic aorta. LUNGS / PLEURA: No significant pulmonary or pleural abnormality. No pneumothorax. ADDITIONAL FINDINGS: No significant additional findings. IMPRESSION: 1. No acute findings. Signer Name: Kenton Daigle MD Signed: 08/07/2019 2:02 PM Workstation Name: [id number]
--- NOTE | 2019-08-07 14:11 | XRay Report ---
XR spine lumbosacral 2-3V INDICATION / CLINICAL INFORMATION: fall, back pain. COMPARISON: 01/08/2016 FINDINGS: BONES/JOINT(S): There is a mild approximately 25% superior endplate compression fracture of L1. This is age-indeterminate but is definitely new compared with 01/08/2016. Vertebral body heights otherwise a ppear maintained within normal limits. There is similar moderate degenerative disc disease at T12-L1 and L1-L2 with disc height loss and reactive endplate sclerosis and osteophyte formation. There is un changed grade 1 anterolisthesis of L4 and L5. SOFT TISSUES: No significant abnormality. ADDITIONAL FINDINGS: None. Signer Name: Kenton Daigle MD Signed: 08/07/2019 2:07 PM Workstation Name: [id number]
--- NOTE | 2019-08-07 14:12 | XRay Report ---
THORACIC SPINE 3 VIEWS INDICATION / CLINICAL INFORMATION: pain with fall. COMPARISON: None available. FINDINGS: VERTEBRAE: No fracture. No significant malalignment. DISC SPACES:No significant abnormality. ADDITIONAL FINDINGS: Osteopenia. IMPRESSION: 1. No significant abnormality. Signer Name: Reji Cazares MD Signed: 08/07/2019 2:08 PM Workstation Name: [id number]
[2019-08-07 14:15] LABS: Platelet Count 170 K/mm3 (140-440)
[2019-08-07] MEDS ORDERED: MORPHINE 4 MG/1 ML INJ IV ONE (14:15)
[2019-08-07] MEDS ORDERED: IPRATROPIUM/ALBUTEROL SULFATE 3 ML AMPUL.NEB IH ONE (14:30)
--- NOTE | 2019-08-07 15:56 | History and Physical Report ---
History of Present Illness Date of examination: 08/07/19 Date of admission: 08/07/2019 Chief complaint: Difficulty breathing History of present illness: Patient is a 73-year-old female with past medical history of asthma, COPD, diabetes hypertension and GERD who presents to [facility] ER for complaints of fall 2 days ago. Patient reports a 5 foot fall from a ladder while changing a light bulb. She reports hitting her head, and complains of generalized back pain. She has taken [id number] pain medications with mild relief. Patient states that she is more concerned about her difficulty breathing which started after her fall. She has had increased dyspnea on exertion and had increased the use off her home O2 and nebulizer machine which makes the breathing 'better'. Patient states that difficulty breathing is made worse by her cigarette usage. While in the ER today patient states that she had midsternal chest pain due to her increased work of breathing that resolved on its own. Past History Past Medical History: diabetes, hypertension Social history: smoking, full code Family history: CAD, diabetes, hypertension Medications and Allergies Allergies Allergy/AdvReac Type Severity Reaction Status Date / Time aspirin AdvReac Vomiting Verified 12/02/15 11:25 Sulfa (Sulfonamide AdvReac Hives;INCREASED Verified 12/18/13 06:28 Antibiotics) HEART RATE Home Medications Medication Instructions Recorded Confirmed Last Taken Type Clopidogrel Bisulfate [Plavix] 75 mg PO DAILY 12/18/13 12/02/15 12/01/15 History 75 mg Gabapentin [Neurontin] 300 mg PO BID PRN 12/18/13 12/02/15 12/01/15 History 300 mg Lisinopril [Zestril TAB] 20 mg PO DAILY 12/18/13 12/02/15 12/02/15 History 20 mg Temazepam [Restoril] 30 mg PO HS 12/18/13 12/02/15 12/01/15 History 30 mg Vit D3-Vit K/Berberine/Hops 1 tab PO DAILY 12/18/13 12/02/15 12/01/15 History [Ostera Tablet] 1 amLODIPine 10 mg PO DAILY 12/18/13 12/02/15 12/01/15 History 10 mg traMADoL [Ultram 50 MG tab] 100 mg PO DAILY PRN 12/18/13 12/02/15 12/02/15 History 100 mg Albuterol *Only Ed* [Proventil 2.5 mg IH DAILY 02/19/14 12/02/15 12/01/15 History 0.5% NEBS] 2.5mg Isosorbide Dinitrate 30 mg PO DAILY 12/02/15 12/02/15 12/01/15 History 30 mg Lansoprazole [Prevacid] 30 mg PO DAILY 12/02/15 12/02/15 12/01/15 History 30 mg PARoxetine [Paxil] 20 mg PO DAILY 12/02/15 12/02/15 12/02/15 History 20 mg Pravastatin [Pravachol] 20 mg PO DAILY 12/02/15 12/02/15 12/01/15 History 20 mg Review of Systems Constitutional: poor appetite Ears, nose, mouth and throat: no mouth pain, no swelling in mouth, no neck lump Breasts: no pain Cardiovascular: chest pain, shortness of breath, dyspnea on exertion, high blood pressure, no rapid/irregular heart beat Respiratory: cough, wheezing, home oxygen Gastrointestinal: no diarrhea, no constipation, no heartburn Genitourinary Female: no stress incontinence Menstruation: postmenopausal Rectal: no bleeding Musculoskeletal: neck pain, low back pain, fractures, arthritis Integumentary: no rash, no jaundice Neurological: head injury, aphasia, no numbness, no tingling, no seizures, no confusion, no memory loss, no sensory deficit, no loss of vision Psychiatric: no disorientation, no depression, no hopelessness, no anxiety at tacks Endocrine: no increase in ring/shoe/hat size, no fatigue Allergic/Immunologic: wheezing, no angioedema Exam - Constitutional Vitals: Temp Pulse Resp BP Pulse Ox 98.4 F 76 22 179/57 92 08/07/19 11:14 08/07/19 15:15 08/07/19 15:15 08/07/19 15:15 08/07/19 15:15 General appearance: Present: mild distress - EENT Eyes: Present: PERRL, EOM intact ENT: hearing intact - Neck Neck: Present: supple - Respiratory Respiratory effort: accessory muscle use Respiratory: right: diminished, left: rhonchi, wheezing - Cardiovascular Rhythm: regular Heart Sounds: Present: S1 & S2 - Extremities Extremities: pulses intact, Full ROM Peripheral Pulses: within normal limits - Abdominal General gastrointestinal: Present: non-tender Results - Labs CBC & Chem 7: 08/07/19 12:45 08/07/19 12:45 Labs: Laboratory Last Values WBC 6.6 K/mm3 (4.5-11.0) 08/07/19 12:45 RBC 4.04 M/mm3 (3.65-5.03) 08/07/19 12:45 Hgb 13.6 gm/dl (10.1-14.3) 08/07/19 12:45 Hct 40.1 % (30.3-42.9) 08/07/19 12:45 MCV 99 fl (79-97) H 08/07/19 12:45 MCH 34 pg (28-32) H 08/07/19 12:45 MCHC 34 % (30-34) 08/07/19 12:45 RDW 18.4 % (13.2-15.2) H 08/07/19 12:45 Plt Count 170 K/mm3 (140-440) 08/07/19 12:45 Lymph % (Auto) 22.0 % (13.4-35.0) 08/07/19 12:45 [place] % (Auto) 8.5 % (0.0-7.3) H 08/07/19 12:45 Eos % (Auto) 0.2 % (0.0-4.3) 08/07/19 12:45 Baso % (Auto) 0.8 % (0.0-1.8) 08/07/19 12:45 Lymph # 1.4 K/mm3 (1.2-5.4) 08/07/19 12:45 [place] # 0.6 K/mm3 (0.0-0.8) 08/07/19 12:45 Eos # 0.0 K/mm3 (0.0-0.4) 08/07/19 12:45 Baso # 0.1 K/mm3 (0.0-0.1) 08/07/19 12:45 Seg Neutrophils % 68.5 % (40.0-70.0) 08/07/19 12:45 Seg Neutrophils # 4.5 K/mm3 (1.8-7.7) 08/07/19 12:45 PT 12.2 Sec. (12.2-14.9) 08/07/19 12:45 INR 0.91 (0.87-1.13) 08/07/19 12:45 APTT 22.1 Sec. (24.2-36.6) L 08/07/19 12:45 D-Dimer 584.49 ng/mlDDU (0-234) H 08/07/19 15:27 Sodium 141 mmol/L (137-145) 08/07/19 12:45 Potassium 4.0 mmol/L (3.6-5.0) 08/07/19 12:45 Chloride 103.7 mmol/L (98-107) 08/07/19 12:45 Carbon Dioxide 25 mmol/L (22-30) 08/07/19 12:45 Anion Gap 16 mmol/L 08/07/19 12:45 BUN 16 mg/dL (7-17) 08/07/19 12:45 Creatinine 0.9 mg/dL (0.7-1.2) 08/07/19 12:45 Estimated GFR > 60 ml/min 08/07/19 12:45 BUN/Creatinine Ratio 18 % 08/07/19 12:45 Glucose 126 mg/dL (65-100) H 08/07/19 12:45 Calcium 9.4 mg/dL (8.4-10.2) 08/07/19 12:45 Total Bilirubin 0.30 mg/dL (0.1-1.2) 08/07/19 12:45 AST 22 units/L (5-40) 08/07/19 12:45 ALT 18 units/L (7-56) 08/07/19 12:45 Alkaline Phosphatase 78 units/L (35-129) 08/07/19 12:45 Troponin T < 0.010 ng/mL (0.00-0.029) 08/07/19 12:45 NT-Pro-B Natriuret Pep 202.8 pg/mL (0-900) 08/07/19 12:45 Total Protein 7.6 g/dL (6.3-8.2) 08/07/19 12:45 Albumin 3.8 g/dL (3.9-5) L 08/07/19 12:45 Albumin/Globulin Ratio 1.0 % 08/07/19 12:45 Assessment and Plan Assessment and plan: XR spine lumbosacral 2-3V FINDINGS: BONES/JOINT(S): There is a mild approximately 25% superior endplate compression fracture of L1. This is age-indeterminate but is definitely new compared with 01/08/2016. V ertebral body heights otherwise appear maintained within normal limits. There is similar moderate degenerative disc disease at T12-L1 and L1-L2 with disc height loss and reactive endplate sclerosis and osteophyte formation. There is unchanged grade 1 anterolisthesis of L4 and L5. THORACIC SPINE 3 VIEWS ADDITIONAL FINDINGS: Osteopenia. IMPRESSION: 1. No significant abnormality. CT head without contrast FINDINGS: Parenchyma: No acute intracranial hemorrhage or parenchymal abnormality. Ventricles: There is mild diffuse brain atrophy with commensurate ventricular enlargement which is likely age appropriate. Soft tissues: Soft tissues including the orbits appear normal. Bones: No acute osseous abnormality. Sinuses: Sinuses and mastoid air cells are clear. CHEST 1 VIEW IMPRESSION: HEART / MEDIASTINUM: Normal heart size. Atherosclerosis in the thoracic aorta. 1. No acute findings. Plan COPD exacerbation -Empiric abx -Tobacco use disorder, counseling provided -Supplemental oxygen - Steroid, nebs -ABG -Chest Xray L1 Compression Fracture - Pain control -Outpatient followup w/ Ortho Surgery Diabeted Mellitus - monitor blood sugar levels Hypertension - Resume antihypertensive medications DVT prophylaxis - Lovenox -SCD to BLE while in bed, Pt ambulatory Advance Directives: Yes VTE prophylaxis?: Chemical Plan of care discussed with patient/family: Yes
[2019-08-07] MEDS ORDERED: GABAPENTIN 300 MG CAP PO PRN (20:59)
[2019-08-07] MEDS ORDERED: TEMAZEPAM 15 MG CAP PO SCH (22:00)
[2019-08-07] MEDS ORDERED: ALBUTEROL 2.5 MG/3 ML NEBU IH PRN (22:12)
--- NOTE | 2019-08-08 01:39 | Cat Scan Report ---
CTA CHEST WITH IV CONTRAST INDICATION: elevated d dimer. Acute onset chest pain with dyspnea TECHNIQUE: Axial CT images were obtained through the chest after injection of 100 mL IV contrast. 3 plane MIP re constructions were produced. All CT scans at this location are performed using CT dose reduction for ALARA by means of automated exposure control. COMPARISON: None available. FINDINGS: PULMONARY ARTERIES: No pulmonary emboli. AORTA AND ARTERIES: No acute abnormality. MEDIASTINUM: No mass, lymphadenopathy or other significant abnormality. The heart is normal in size w ithout a pericardial effusion. The trachea and main bronchi are patent and normal in caliber. LUNGS: Emphysema with basilar atelectasis.. ADDITIONAL FINDINGS: None. UPPER ABDOMEN: No acute findings. BONES: No significant osseous abnormality. IMPRESSION: 1. No CT evidence for pulmonary embolism. 2. Emphysema with bibasilar opacities likely to be related to atelectasis. Signer Name: Michael Johansen MD Signed: 08/08/2019 1:35 AM Workstation Name: [id number]
[2019-08-08] MEDS: traMADol 50 MG TAB PO PRN ×2 (01:46→09:12)
[2019-08-08] MEDS ORDERED: hydrALAZINE 20 MG/1 ML INJ IV PRN (02:06)
[2019-08-08] MEDS: ONDANSETRON 4 MG/2 ML INJ IV PRN ×2 (02:31→17:06)
[2019-08-08] MEDS ORDERED: amLODIPine 10 MG TAB PO ONE (02:45)
[2019-08-08] MEDS ORDERED: PARoxetine 20 MG TAB PO SCH (10:00)
[2019-08-08] MEDS ORDERED: BERBERINE PO SCH (10:00)
[2019-08-08] MEDS ORDERED: VIT D3 VIT K PO SCH (10:00)
[2019-08-08] MEDS ORDERED: amLODIPine 10 MG TAB PO SCH (10:00)
[2019-08-08] MEDS ORDERED: CLOPIDOGREL 75 MG TAB PO SCH (10:00)
[2019-08-08] MEDS ORDERED: LISINOPRIL 20 MG TAB PO SCH (10:00)
[2019-08-08] MEDS ORDERED: PRAVASTATIN 20 MG TAB PO SCH (10:00)
[2019-08-08] MEDS ORDERED: ISOSORBIDE DINITRATE 10 MG TAB PO SCH (10:00)
[2019-08-08] MEDS ORDERED: HOPS PO SCH (10:00)
--- NOTE | 2019-08-08 14:29 | Progress Note ---
Assessment and Plan Assessment and plan: Patient is a 73-year-old woman with a history of COPD, diabetes, hypertension and GERD who presented to [facility] ED after fall 2 days ago and worsening SOB. * XR spine lumbosacral 2-3V FINDINGS: BONES/JOINT(S): There is a mild approximately 25% superior endplate compression fracture of L1. This is age-indeterminate but is definitely new compared with 01/08/2016. Vertebral body heights otherwise appear maintained within normal limits. There is similar moderate degenerative disc disease at T12-L1 and L1-L2 with disc height loss and reactive endplate sclerosis and osteophyte formation. There is unchanged g rade 1 anterolisthesis of L4 and L5. * THORACIC SPINE 3 VIEWS ADDITIONAL FINDINGS: Osteopenia. IMPRESSION: 1. No significant abnormality. * CT head without contrast: No acute findings * CHEST 1 VIEW 1. No acute findings. Acute on chronic hypoxic respiratory failure, current pulse ox was 87% on 2 liters, improved with nasal suctioning to 90% Acute COPD exacerbation: treat with iv steroids, nebs, o2, abx Tobacco use disorder, counseling provided Traumatic L1 Compression Fracture: Pain control, Outpatient followup w/ Ortho Surgery Diabete Mellitus type 2- monitor blood sugar levels Hypertension- Resume antihypertensive medications DVT prophylaxis- Lovenox History Interval history: Patient was seen and examined. Follow-up on current diagnosis of COPD. No overnight events reported to me. Patient denies any chest pain, nausea/vomiting or severe headaches. Imaging, nursing note, chart, labs and old chart reviewed. Discussed with patient. Hospitalist Physical - Physical exam Narrative exam: Gen: ill appearing, mod. increase accessory muslces, on 02, Awake, Alert, Orientated HEENT: NCAT, EOMI, PERRL, OP Clear Neck: supple, no adenopathy, no thyromegaly, no JVD CVS/Heart: RRR, normal S1S2, pulses present bilaterally Chest/Lungs: diminised bs bilaterallly, Symmetrical chest expansion, good air entry bilaterally GI/Abdomen: soft, NTND, good bowel sounds, no guarding or rebound /Bladder: no suprapubic tenderness, no CVA or paraspinal tenderness Extermity/Skin: no c/c/e, no obvious rash MSK: FROM x 4 Neuro: CN 2-12 grossly intact, no new focal deficits Psych: calm - Constitutional Vitals: Temp Pulse Resp BP Pulse Ox 98.0 F 115 H 20 90/48 94 08/08/19 12:56 08/08/19 12:56 08/08/19 12:56 08/08/19 12:56 08/08/19 12:56 General appearance: Absent: mild distress Results - Labs CBC & Chem 7: 08/07/19 12:45 08/07/19 12:45 Labs: Laboratory Last Values WBC 6.6 K/mm3 (4.5-11.0) 08/07/19 12:45 RBC 4.04 M/mm3 (3.65-5.03) 08/07/19 12:45 Hgb 13.6 gm/dl (10.1-14.3) 08/07/19 12:45 Hct 40.1 % (30.3-42.9) 08/07/19 12:45 MCV 99 fl (79-97) H 08/07/19 12:45 MCH 34 pg (28-32) H 08/07/19 12:45 MCHC 34 % (30-34) 08/07/19 12:45 RDW 18.4 % (13.2-15.2) H 08/07/19 12:45 Plt Count 170 K/mm3 (140-440) 08/07/19 12:45 Lymph % (Auto) 22.0 % (13.4-35.0) 08/07/19 12:45 [place] % (Auto) 8.5 % (0.0-7.3) H 08/07/19 12:45 Eos % (Auto) 0.2 % (0.0-4.3) 08/07/19 12:45 Baso % (Auto) 0.8 % (0.0-1.8) 08/07/19 12:45 Lymph # 1.4 K/mm3 (1.2-5.4) 08/07/19 12:45 [place] # 0.6 K/mm3 (0.0-0.8) 08/07/19 12:45 Eos # 0.0 K/mm3 (0.0-0.4) 08/07/19 12:45 Baso # 0.1 K/mm3 (0.0-0.1) 08/07/19 12:45 Seg Neutrophils % 68.5 % (40.0-70.0) 08/07/19 12:45 Seg Neutrophils # 4.5 K/mm3 (1.8-7.7) 08/07/19 12:45 PT 12.2 Sec. (12.2-14.9) 08/07/19 12:45 INR 0.91 (0.87-1.13) 08/07/19 12:45 APTT 22.1 Sec. (24.2-36.6) L 08/07/19 12:45 D-Dimer 584.49 ng/mlDDU (0-234) H 08/07/19 15:27 Sodium 141 mmol/L (137-145) 08/07/19 12:45 Potassium 4.0 mmol/L (3.6-5.0) 08/07/19 12:45 Chloride 103.7 mmol/L (98-107) 08/07/19 12:45 Carbon Dioxide 25 mmol/L (22-30) 08/07/19 12:45 Anion Gap 16 mmol/L 08/07/19 12:45 BUN 16 mg/dL (7-17) 08/07/19 12:45 Creatinine 0.9 mg/dL (0.7-1.2) 08/07/19 12:45 Estimated GFR > 60 ml/min 08/07/19 12:45 BUN/Creatinine Ratio 18 % 08/07/19 12:45 Glucose 126 mg/dL (65-100) H 08/07/19 12:45 Calcium 9.4 mg/dL (8.4-10.2) 08/07/19 12:45 Total Bilirubin 0.30 mg/dL (0.1-1.2) 08/07/19 12:45 AST 22 units/L (5-40) 08/07/19 12:45 ALT 18 units/L (7-56) 08/07/19 12:45 Alkaline Phosphatase 78 units/L (35-129) 08/07/19 12:45 Troponin T < 0.010 ng/mL (0.00-0.029) 08/07/19 15:27 NT-Pro-B Natriuret Pep 202.8 pg/mL (0-900) 08/07/19 12:45 Total Protein 7.6 g/dL (6.3-8.2) 08/07/19 12:45 Albumin 3.8 g/dL (3.9-5) L 08/07/19 12:45 Albumin/Globulin Ratio 1.0 % 08/07/19 12:45 Active Medications - Current Medications Current Medications: Generic Name Dose Route Start Last Admin Trade Name Freq PRN Reason Stop Dose Admin Albuterol 2.5 mg 08/07/19 22:12 Proventil IH Q4HRT PRN Shortness Of Breath Amlodipine Besylate 10 mg 08/08/19 10:00 08/08/19 09:11 Amlodipine PO 10 mg DAILY [facility] Administration Clopidogrel Bisulfate 75 mg 08/08/19 10:00 08/08/19 09:10 Plavix PO 75 mg DAILY [facility] Administration Gabapentin 300 mg 08/07/19 20:59 Gabapentin PO BID PRN PAIN (NERVE) Hydralazine HCl 10 mg 08/08/19 02:06 Apresoline IV Q4H PRN Blood Pressure Isosorbide Dinitrate 30 mg 08/08/19 10:00 08/08/19 09:11 Isordil Titradose PO 30 mg DAILY [facility] Administration Lisinopril 20 mg 08/08/19 10:00 08/08/19 09:10 Zestril PO 20 mg DAILY [facility] Administration Miscellaneous Medication 1 tab 08/08/19 10:00 Vit D3-Vit K/Berberine/Hops [Ostera Tablet] PO DAILY [facility] Ondansetron HCl 4 mg 08/08/19 02:05 08/08/19 02:31 Zofran IV 4 mg Q8H PRN Administration Nausea And Vomiting Paroxetine HCl 20 mg 08/08/19 10:00 08/08/19 09:10 Paxil PO 20 mg DAILY [facility] Administration Pravastatin Sodium 20 mg 08/08/19 10:00 08/08/19 09:11 Pravachol PO 20 mg DAILY [facility] Administration Temazepam 30 mg 08/07/19 22:00 08/07/19 21:54 Restoril PO 30 mg HS [facility] Administration Tramadol HCl 100 mg 08/07/19 20:59 08/08/19 09:12 Ultram PO 100 mg DAILY PRN Administration PAIN (3-6) Nutrition/Malnutrition Assess - Dietary Evaluation Nutrition/Malnutrition Findings: Nutrition Notes Start: 08/08/19 1 1:34 Freq: Status: Active Protocol: Document 08/08/19 11:34 KS (Rec: 08/08/19 11:58 KS [id number]) Co-Sign 08/08/19 11:34 LP Nutrition Notes 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 Subjective/Other Information RN screen for skin risk. 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 Pt reports UBW of 144lbs and wt loss of 4lbs over past week . Wt in chart consistent with stated wt loss. Pt reports vomiting yesterday with persistent nausea. Pt only taking bites of tray and requests soup. 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 No Is Patient Ambulatory and/or Out of Bed Yes REE-([facility]-ambulatory/OOB) [ [id number] [id number]] Calculation Used for Recommendations [facility] Additional Notes PRO: 76-95g/day (1.2-1.5g/kg/ day) Fluid: 1mL/kcal Nutrition Intervention Change Diet Order: Start full liquid diet Goal #1 Meet at least 75% of needs via PO intakes. Anticipated Discharge Needs: Consistent CHO diet Follow-Up By: 08/10/19 Additional Comments Follow for PO intakes
[2019-08-08] MEDS ORDERED: POLYETHYLENE GLYCOL 3350 17 GM POWDER PO ONE (15:45)
[2019-08-08] MEDS ORDERED: METOCLOPRAMIDE 10 MG/2 ML INJ IV ONE ×2 (17:48→17:52)
--- NOTE | 2019-08-08 18:30 | XRay Report ---
ABDOMEN 1 VIEW INDICATION / CLINICAL INFORMATION: MAIN: Abdominal pain x 1 day. COMPARISON: Lumbar spine radiograph one day prior FINDINGS: TUBES / LINES: None. BOWEL GAS PATTERN: There is gaseous distention of the colon, with the transverse colon measuring up t o 7.2 cm in diameter. Small to moderate colonic stool burden. Bowel gas pattern appears similar to sl ightly improved compared with prior lumbar spine radiograph. FREE AIR / EXTRALUMINAL GAS: None appreciated on supine radiograph, with the right hemidiaphragm part ially excluded from [id number]. ADDITIONAL FINDINGS: Spinal degenerative changes. IMPRESSION: 1. Nonspecific bowel gas pattern with mild to moderate gaseous distention of the colon. Signer Name: Calista Jiménez MD Signed: 08/08/2019 6:25 PM Workstation Name: [id number]
[2019-08-08] MEDS ORDERED: SODIUM BICARB 8.4% 50 MEQ/50 ML SYRINGE IV ONE ×3 (19:25→23:20)
[2019-08-08] MEDS ORDERED: EPINEPHrine 1:10,000 1 MG/10 ML SYRINGE ONE ×2 (19:25→21:06)
[2019-08-08] MEDS ORDERED: LIP THERAPY VASELINE TP PRN (19:52)
[2019-08-08] MEDS ORDERED: MINERAL OIL/PETROLATUM, WHITE OPHTH OINT 3.5 GM OU PRN (19:52)
[2019-08-08] MEDS ORDERED: PROPOFOL 1,000 MG/100 ML BOTTLE IV SCH (20:00)
--- NOTE | 2019-08-08 20:11 | Event Note ---
Date: 08/08/19 ANGELES HANSON was called around 1940 hrs. ACLS protocol was initiated Patient was given 1 round of epinephrine and a normal bicarbonate Patient arrived with return of pulse and blood pressure Patient intubated Patient transferred to ICU Fluids to close friend who was in the rosas waiting for the patient
--- NOTE | 2019-08-08 21:02 | XRay Report ---
CHEST 1 VIEW INDICATION / CLINICAL INFORMATION: ETT placement. COMPARISON: 08/07/2019 FINDINGS: SUPPORT DEVICES: The tip of the endotracheal tube is located 6.7 cm above the bipin. HEART / MEDIASTINUM: No significant abnormality. LUNGS / PLEURA: No significant pulmonary or pleural abnormality. No pneumothorax. ADDITIONAL FINDINGS: Interstitial fibrosis. IMPRESSION: 1. No acute findings. Signer Name: Chito Arora MD Signed: 08/08/2019 8:58 PM Workstation Name: [email or web address]
[2019-08-08] MEDS ORDERED: SODIUM BICARB 8.4% 50 MEQ/50 ML VIAL IV ONE (21:06)
[2019-08-08] MEDS ORDERED: ATROPINE 0.1% (1 MG/10 ML) CARDIAC SYRINGE ONE (21:06)
[2019-08-08] MEDS ORDERED: DEXTROSE 50% IN WATER (25GM) 50 ML SYRINGE IV ONE (21:06)
[2019-08-08 21:14] LABS: Basophils % (Auto) 0.4 % (0.0-1.8); Eosinophils % (Auto) 0.2 % (0.0-4.3); Hematocrit 39.2 % (30.3-42.9); Hemoglobin 12.9 gm/dl (10.1-14.3); Lymphocytes # (Auto) 3.1 K/mm3 (1.2-5.4); Lymphocytes % (Auto) 46.4 % (13.4-35.0); Mean Corpuscular HGB Conc 33 % (30-34); Mean Corpuscular Volume 104 fl (79-97); Monocytes # (Auto) 0.1 K/mm3 (0.0-0.8); Monocytes % (Auto) 1.8 % (0.0-7.3); Platelet Count 134 K/mm3 (140-440); Red Blood Count 3.77 M/mm3 (3.65-5.03); Red Cell Distribution Width 18.2 % (13.2-15.2)
[2019-08-08 21:27] LABS: Creatine Kinase MB 4.8 ng/mL (0.0-4.0)
[2019-08-08] MEDS ORDERED: NORepinephrine/NS 4 MG-250 ML 4 MG/250 ML BAG IV ONE (21:29)
[2019-08-08 21:36] LABS: Albumin 2.9 g/dL (3.9-5); Calcium 9.5 mg/dL (8.4-10.2)
[2019-08-08 21:46] LABS: INR 1.58 (0.87-1.13); Partial Thromboplastin Time 32.1 Sec. (24.2-36.6)
[2019-08-08] MEDS ORDERED: PANTOPRAZOLE 40 MG INJ IV ONE (21:47)
[2019-08-08] MEDS ORDERED: SODIUM CHLORIDE 0.45% 1000 ML 1,000 ML IV ONE (21:53)
[2019-08-08] MEDS ORDERED: PANTOPRAZOLE 40 MG INJ IV STA (21:56)
[2019-08-08 22:28] LABS: Chol/HDL Ratio 3.61 %
--- NOTE | 2019-08-08 22:38 | Consultation ---
History of Present Illness Consult date: 08/08/19 Consult reason: cardiac arrest, elevated troponin History of present illness: I was called to see patient after several PEA arrests. Patient is intubated, ventilated on IV levophed and IV fluids. Patient has fixed, dilated and non- reactive pupils. A stat echo done at the bedside revealing normal LV and RV function with no evidence of pericardial effusion. ECG reviewed and there is no evidence of STEMI. Rhythm is fluctuating between sinus rhythm and atrial tach. Discussed with niece Maria Teresa and sister over the phone. Patient has a history of severe emphysema, and is a chronic heavy smoker. Family wants everything done. Past History Past Medical History: diabetes, hypertension Social history: smoking, full code Family history: CAD, diabetes, hypertension Medications and Allergies Allergies Allergy/AdvReac Type Severity Reaction Status Date / Time aspirin AdvReac Vomiting Verified 12/02/15 11:25 Sulfa (Sulfonamide AdvReac Hives;INCREASED Verified 12/18/13 06:28 Antibiotics) HEART RATE Home Medications Medication Instructions Recorded Confirmed Last Taken Type Clopidogrel Bisulfate [Plavix] 75 mg PO DAILY 12/18/13 08/07/19 12/01/15 History 75 mg Gabapentin [Neurontin] 300 mg PO BID PRN 12/18/13 08/07/19 12/01/15 History 300 mg Lisinopril [Zestril TAB] 20 mg PO DAILY 12/18/13 08/07/19 12/02/15 History 20 mg Temazepam [Restoril] 30 mg PO HS 12/18/13 08/07/19 12/01/15 History 30 mg Vit D3-Vit K/Berberine/Hops 1 tab PO DAILY 12/18/13 08/07/19 12/01/15 History [Ostera Tablet] 1 amLODIPine 10 mg PO DAILY 12/18/13 08/07/19 12/01/15 History 10 mg traMADoL [Ultram 50 MG tab] 100 mg PO DAILY PRN 12/18/13 08/07/19 12/02/15 History 100 mg Albuterol *Only Ed* [Proventil 2.5 mg IH DAILY 02/19/14 08/07/19 12/01/15 History 0.5% NEBS] 2.5mg Isosorbide Dinitrate 30 mg PO DAILY 12/02/15 08/07/19 12/01/15 History 30 mg Lansoprazole [Prevacid] 30 mg PO DAILY 12/02/15 08/07/19 12/01/15 History 30 mg PARoxetine [Paxil] 20 mg PO DAILY 12/02/15 08/07/19 12/02/15 History 20 mg Pravastatin [Pravachol] 20 mg PO DAILY 12/02/15 08/07/19 12/01/15 History 20 mg Active Meds: Active Medications Albuterol (Proventil) 2.5 mg IH Q4HRT PRN PRN Reason: Shortness Of Breath Last Admin: 08/08/19 15:48 Dose: 2.5 mg Documented by: Amlodipine Besylate (Amlodipine) 10 mg PO DAILY [facility] Last Admin: 08/08/19 09:11 Dose: 10 mg Documented by: Clopidogrel Bisulfate (Plavix) 75 mg PO DAILY [facility] Last Admin: 08/08/19 09:10 Dose: 75 mg Documented by: Gabapentin (Gabapentin) 300 mg PO BID PRN PRN Reason: PAIN (NERVE) Last Admin: 08/08/19 16:47 Dose: 300 mg Documented by: Hydralazine HCl (Apresoline) 10 mg IV Q4H PRN PRN Reason: Blood Pressure Hydrophilic Ointment (Vaseline Lip Therapy) 1 applic TP Q2HR PRN PRN Reason: Dry Lips Propofol (Diprivan 10 Mg/Ml) 1,000 mg in 100 mls @ 1.905 mls/hr IV TITR [facility]; Protocol Piperacillin Sod/Tazobactam Sod (Zosyn/Ns 2.25 Gm/50ml) 2.25 gm in 50 mls @ 100 mls/hr IV Q8HR [facility]; Protocol Norepinephrine (Levophed Drip 4 Mg/Ns 250 Ml) 4 mg in 250 mls @ 7.5 mls/hr IV TITR [facility]; Protocol Isosorbide Dinitrate (Isordil Titradose) 30 mg PO DAILY [facility] Last Admin: 08/08/19 09:11 Dose: 30 mg Documented by: Lisinopril (Zestril) 20 mg PO DAILY [facility] Last Admin: 08/08/19 09:10 Dose: 20 mg Documented by: Miscellaneous Medication (Vit D3-Vit K/Berberine/Hops [Ostera Tablet]) 1 tab PO DAILY [facility] Multi-Ingred Cream/Lotion/Oil/Oint (Artificial Tears Ophth Oint) 1 applic OU Q4HR PRN PRN Reason: Dry Eye(s) Ondansetron HCl (Zofran) 4 mg IV Q8H PRN PRN Reason: Nausea And Vomiting Last Admin: 08/08/19 17:06 Dose: 4 mg Documented by: Paroxetine HCl (Paxil) 20 mg PO DAILY [facility] Last Admin: 08/08/19 09:10 Dose: 20 mg Documented by: Pravastatin Sodium (Pravachol) 20 mg PO DAILY [facility] Last Admin: 08/08/19 09:11 Dose: 20 mg Documented by: Temazepam (Restoril) [address] [facility] Last Admin: 08/07/19 21:54 Dose: 30 mg Documented by: Tramadol HCl (Ultram) 100 mg PO DAILY PRN PRN Reason: PAIN (3-6) Last Admin: 08/08/19 09:12 Dose: 100 mg Documented by: Review of Systems ROS unobtainable: due to endotracheal tube, due to mental status Physical Examination Vital Signs Temp Pulse Resp BP Pulse Ox 98.4 F 97 H 24 192/111 98 08/07/19 11:14 08/07/19 11:14 08/07/19 11:14 08/07/19 11:14 08/07/19 11:14 General appearance: other (intubated) Neck: Negative: JVD/HJR Cardiac: Positive: Tachycardia Lungs: Positive: Ventilated Respirations Abdomen: Positive: Soft Extremities: Absent: edema Results 08/08/19 20:45 08/08/19 20:45 Cardiac Enzymes 08/08/19 08/08/19 Range/Units 20:45 20:45 AST 207 H (5-40) units/L CK-MB (CK-2) 4.8 H (0.0-4.0) ng/mL Coagulation 08/08/19 Range/Units 21:15 PT 18.6 H (12.2-14.9) Sec. INR 1.58 H (0.87-1.13) APTT 32.1 (24.2-36.6) Sec. Lipids 08/08/19 Range/Units 20:45 Triglycerides 112 (2-149) mg/dL Cholesterol 152 (50-199) mg/dL HDL Cholesterol 42 (40-59) mg/dL Cholesterol/HDL Ratio 3.61 % CBC 08/08/19 Range/Units 20:45 WBC 6.7 (4.5-11.0) K/mm3 RBC 3.77 (3.65-5.03) M/mm3 Hgb 12.9 (10.1-14.3) gm/dl Hct 39.2 (30.3-42.9) % Plt Count 134 L (140-440) K/mm3 Lymph # 3.1 (1.2-5.4) K/mm3 [place] # 0.1 (0.0-0.8) K/mm3 Eos # 0.0 (0.0-0.4) K/mm3 Baso # 0.0 (0.0-0.1) K/mm3 Comprehensive Metabolic Panel 08/08/19 Range/Units 20:45 Sodium 148 H (137-145) mmol/L Potassium 4.1 (3.6-5.0) mmol/L Chloride 94.1 L (98-107) mmol/L Carbon Dioxide 20 L (22-30) mmol/L BUN 27 H (7-17) mg/dL Creatinine 2.6 H D (0.7-1.2) mg/dL Glucose 105 H (65-100) mg/dL Calcium 9.5 (8.4-10.2) mg/dL AST 207 H (5-40) units/L ALT 151 H (7-56) units/L Alkaline Phosphatase 131 H (35-129) units/L Total Protein 6.0 L D (6.3-8.2) g/dL Albumin 2.9 L (3.9-5) g/dL - EKG Interpretation EKG shows: tachycardia Assessment and Plan Cardiac arrest - PEA arrest x 3 Stat echo at the bedside reveals normal LV and RV function with no evidence of pericardial effusion CTA chest showed no PE Emphysema with heavy smoking history Acute renal failure Metabolic acidosis Shock liver with elevated ammonia levels Non-specific troponin Atrial tachycardia Recommendations: No further cardiac work-up is needed Extensively discussed poor prognosis with family. Family wants everything done. Patient remains full code Dr Ariza informed of findings
[2019-08-09] MEDS: NORepinephrine/NS 4 MG-250 ML 4 MG/250 ML BAG IV SCH ×3 (00:06→05:47)
[2019-08-09] MEDS: PIPERACIL-TAZO 2.25 GM/50 ML 2.25 GM/50 ML BAG IV SCH ×2 (00:10→06:14)
[2019-08-09] MEDS ORDERED: DEXTROSE 50% IN WATER (25GM) 50 ML SYRINGE IV ONE ×2 (00:21→00:42)
--- NOTE | 2019-08-09 02:27 | Event Note ---
<DANE BYRNE - Last Filed: 08/09/19 02:24> Date: 08/08/19 Code Luis Angel called at 2105. Patient experienced PEA arrest. ACS protocol initiated. Patient received sodium bicarbonate 1, and EPI x2 with ROSC. Patient remains intubated on ventilator. Stat labs pending <PAULA HYDE - Last Filed: 08/09/19 05:45> Ventillator setting adjusted to decrease carbon-dioxide/PH. Start emperic antibiotic, IV fluid. Patient had coffee ground emesis earlier, give protonix bolus and drip, consult GI, monitor hemoglobin. hold antihypertensives, tramadol, plavix
[2019-08-09] MEDS ORDERED: DEXTROSE 50% IN WATER (25GM) 50 ML SYRINGE IV PRN (03:03)
[2019-08-09] MEDS ORDERED: SODIUM CHLORIDE 0.45% 1000 ML 1,000 ML IV SCH (03:05)
[2019-08-09] MEDS ORDERED: PANTOPRAZOLE 80 MG in SODIUM CHLORIDE 0.9% 100 ML IV SCH (04:00)
[2019-08-09] MEDS ORDERED: EPINEPHrine 1:10,000 1 MG/10 ML SYRINGE ONE (04:08)
[2019-08-09] MEDS ORDERED: D5W/0.45% NACL 1,000 ML IV ONE (04:20)
[2019-08-09] MEDS ORDERED: D5W/0.45% NACL 1,000 ML IV SCH (05:00)
--- NOTE | 2019-08-09 05:06 | XRay Report ---
CHEST 1 VIEW INDICATION / CLINICAL INFORMATION: follow up respiratory failure. COMPARISON: None available. FINDINGS: SUPPORT DEVICES: The endotracheal tube and esophagogastric tube both project in good position.. HEART / MEDIASTINUM: No significant abnormality. LUNGS / PLEURA: Streaky airspace densities are seen throughout both lower lungs and the right upper l obe. No large pleural effusion or pneumothorax. Signer Name: Michael Johansen MD Signed: 08/09/2019 5:02 AM Workstation Name: [id number]
[2019-08-09] MEDS ORDERED: VANCOMYCIN/NS 1 GM/250 ML 1 GM/250 ML BAG IV ONE (05:15)
[2019-08-09 05:41] LABS: Hematocrit 36.6 % (30.3-42.9); Hemoglobin 11.9 gm/dl (10.1-14.3); Mean Corpuscular HGB Conc 33 % (30-34); Mean Corpuscular Volume 104 fl (79-97); Red Blood Count 3.51 M/mm3 (3.65-5.03); Red Cell Distribution Width 18.4 % (13.2-15.2)
[2019-08-09 05:43] LABS: Creatine Kinase MB 86.1 ng/mL (0.0-4.0)
[2019-08-09 06:35] LABS: Calcium 7.1 mg/dL (8.4-10.2)
[2019-08-09 06:55] LABS: Anisocytosis 1+; Band Neutrophils # (Manual) 0.2 K/mm3; Basophils % (Manual) 0 % (0.0-1.8); Eosinophils % (Manual) 0 % (0.0-4.3); Total Cells Counted 100
[2019-08-09 06:56] LABS: Platelet Count 110 K/mm3 (140-440); Platelet Estimate Consistent w Auto
[2019-08-09 08:08] LABS: Bacteria,Urine 1+ /HPF (Negative); Bilirubin,Urine NEG (Negative); Blood,Urine LG (Negative); Color,Urine Amber (Yellow); Mucus,Urine FEW /HPF
--- NOTE | 2019-08-09 08:28 | Progress Note ---
Assessment and Plan Assessment and plan: Patient is a 73-year-old woman with a history of COPD, diabetes, hypertension and GERD who presented to [facility] ED after fall 2 days ago and worsening SOB. * XR spine lumbosacral 2-3V FINDINGS: BONES/JOINT(S): There is a mild approximately 25% superior endplate compression fracture of L1. This is age-indeterminate but is definitely new compared with 01/08/2016. Vertebral body heights otherwise appear maintained within normal limits. There is similar moderate degenerative disc disease at T12-L1 and L1-L2 with disc height loss and reactive endplate sclerosis and osteophyte formation. There is unchanged g rade 1 anterolisthesis of L4 and L5. * THORACIC SPINE 3 VIEWS ADDITIONAL FINDINGS: Osteopenia. IMPRESSION: 1. No significant abnormality. * CT head without contrast: No acute findings * CHEST 1 VIEW 1. No acute findings. * CTA chest IMPRESSION: 1. No CT evidence for pulmonary embolism. 2. Emphysema with bibasilar opacities likely to be related to atelectasis. PEA Cardiac arrest most likely hypoxic related due to end stage COPD, poor prognosis Acute on chronic hypoxic respiratory failure, current pulse ox was 87% on 2 liters, improved with nasal suctioning to 90% Acute COPD exacerbation: treat with iv steroids, nebs, o2, abx (wasn't started o n admission) Tobacco use disorder, counseling provided Traumatic L1 Compression Fracture: Pain control, Outpatient followup w/ Ortho Surgery Diabete Mellitus type 2- monitor blood sugar levels Hypertension- Resume antihypertensive medications DVT prophylaxis- Lovenox I spoke with daughter in law (with code) Irene. Patient had 1 kid, Irene's , who . Two grandkids, and Sharad is on his way. Status updated. CCT 32 minutes History Interval history: Patient was seen and examined. Follow-up on current diagnosis of COPD. Overnight events noted. It appears patient had multiple code blues, 4 cardiac arrests. Then patient had another PEA cardiac arrest at 0801 in which ACLS was completed successfully; however, patient has agonal breathing, pupils are fixed and dilated with sclera icterus. Family left but they were called. Hospitalist Physical - Physical exam Narrative exam: Gen: severely critically ill, intubated, not sedated, non-responsive HEENT: NCAT, EOM abn, Pupils fixed dilated and non-reactive, OP with ETT in p lace CVS/Heart: irregular normal S1S2, pulses present bilaterally after code blue Chest/Lungs: diminished bs bilaterally, GI/Abdomen: soft, bowel sounds present Extermity/Skin: sclera icterus, left femoral TLC MSK: no FROM x 4 Neuro: abnormal, non-responsive, vegatative state Psych: unresponsive - Constitutional Vitals: Temp Pulse Resp BP Pulse Ox 98.7 F 85 24 100/57 96 08/09/19 07:00 08/09/19 07:30 08/09/19 07:30 08/09/19 07:30 08/09/19 07:22 General appearance: Present: other (intubated) Results - Labs CBC & Chem 7: 08/09/19 05:20 08/09/19 04:17 Labs: Laboratory Last Values WBC 2.2 K/mm3 (4.5-11.0) L 08/09/19 05:20 RBC 3.51 M/mm3 (3.65-5.03) L 08/09/19 05:20 Hgb 11.9 gm/dl (10.1-14.3) 08/09/19 05:20 Hct 36.6 % (30.3-42.9) 08/09/19 05:20 MCV 104 fl (79-97) H 08/09/19 05:20 MCH 34 pg (28-32) H 08/09/19 05:20 MCHC 33 % (30-34) 08/09/19 05:20 RDW 18.4 % (13.2-15.2) H 08/09/19 05:20 Plt Count 110 K/mm3 (140-440) L 08/09/19 05:20 Lymph % (Auto) 46.4 % (13.4-35.0) H 08/08/19 20:45 [place] % (Auto) 1.8 % (0.0-7.3) 08/08/19 20:45 Eos % (Auto) 0.2 % (0.0-4.3) 08/08/19 20:45 Baso % (Auto) 0.4 % (0.0-1.8) 08/08/19 20:45 Lymph # 3.1 K/mm3 (1.2-5.4) 08/08/19 20:45 [place] # 0.1 K/mm3 (0.0-0.8) 08/08/19 20:45 Eos # 0.0 K/mm3 (0.0-0.4) 08/08/19 20:45 Baso # 0.0 K/mm3 (0.0-0.1) 08/08/19 20:45 Add Manual Diff Complete 08/09/19 05:20 Total Counted 100 08/09/19 05:20 Seg Neutrophils % 51.2 % (40.0-70.0) 08/08/19 20:45 Seg Neuts % (Manual) 67.0 % (40.0-70.0) 08/09/19 05:20 Band Neutrophils % 7.0 % 08/09/19 05:20 Lymphocytes % (Manual) 20.0 % (13.4-35.0) 08/09/19 05:20 Reactive Lymphs % (Man) 0 % 08/09/19 05:20 Monocytes % (Manual) 6.0 % (0.0-7.3) 08/09/19 05:20 Eosinophils % (Manual) 0 % (0.0-4.3) 08/09/19 05:20 Basophils % (Manual) 0 % (0.0-1.8) 08/09/19 05:20 Metamyelocytes % 0 % 08/09/19 05:20 Myelocytes % 0 % 08/09/19 05:20 Promyelocytes % 0 % 08/09/19 05:20 Blast Cells % 0 % 08/09/19 05:20 Nucleated RBC % Not Reportable 08/09/19 05:20 Seg Neutrophils # 3.4 K/mm3 (1.8-7.7) 08/08/19 20:45 Seg Neutrophils # Man 1.5 K/mm3 (1.8-7.7) L 08/09/19 05:20 Band Neutrophils # 0.2 K/mm3 08/09/19 05:20 Lymphocytes # (Manual) 0.4 K/mm3 (1.2-5.4) L 08/09/19 05:20 Abs React Lymphs (Man) 0.0 K/mm3 08/09/19 05:20 Monocytes # (Manual) 0.1 K/mm3 (0.0-0.8) 08/09/19 05:20 Eosinophils # (Manual) 0.0 K/mm3 (0.0-0.4) 08/09/19 05:20 Basophils # (Manual) 0.0 K/mm3 (0.0-0.1) 08/09/19 05:20 Metamyelocytes # 0.0 K/mm3 08/09/19 05:20 Myelocytes # 0.0 K/mm3 08/09/19 05:20 Promyelocytes # 0.0 K/mm3 08/09/19 05:20 Blast Cells # 0.0 K/mm3 08/09/19 05:20 WBC Morphology Not Reportable 08/09/19 05:20 Hypersegmented Neuts Not Reportable 08/09/19 05:20 Hyposegmented Neuts Not Reportable 08/09/19 05:20 Hypogranular Neuts Not Reportable 08/09/19 05:20 Smudge Cells Not Reportable 08/09/19 05:20 Toxic Granulation Not Reportable 08/09/19 05:20 Toxic Vacuolation Not Reportable 08/09/19 05:20 Dohle Bodies Not Reportable 08/09/19 05:20 Pelger-Huet Anomaly Not Reportable 08/09/19 05:20 Eb Rods Not Reportable 08/09/19 05:20 Platelet Estimate Consistent w auto 08/09/19 05:20 Clumped Platelets Not Reportable 08/09/19 05:20 Plt Clumps, EDTA Not Reportable 08/09/19 05:20 Large Platelets Not Reportable 08/09/19 05:20 Giant Platelets Not Reportable 08/09/19 05:20 Platelet Satelliting Not Reportable 08/09/19 05:20 Plt Morphology Comment Not Reportable 08/09/19 05:20 RBC Morphology Not Reportable 08/09/19 05:20 Dimorphic RBCs Not Reportable 08/09/19 05:20 Polychromasia Not Reportable 08/09/19 05:20 Hypochromasia Not Reportable 08/09/19 05:20 Poikilocytosis Not Reportable 08/09/19 05:20 Anisocytosis 1+ 08/09/19 05:20 Microcytosis Not Reportable 08/09/19 05:20 Macrocytosis Not Reportable 08/09/19 05:20 Spherocytes Not Reportable 08/09/19 05:20 Pappenheimer Bodies Not Reportable 08/09/19 05:20 Sickle Cells Not Reportable 08/09/19 05:20 Target Cells Not Reportable 08/09/19 05:20 Tear Drop Cells Not Reportable 08/09/19 05:20 Ovalocytes Not Reportable 08/09/19 05:20 Helmet Cells Not Reportable 08/09/19 05:20 [place] Bodies Not Reportable 08/09/19 05:20 Wynona Rings Not Reportable 08/09/19 05:20 Sangeeta Cells Not Reportable 08/09/19 05:20 Bite Cells Not Reportable 08/09/19 05:20 Crenated Cell Not Reportable 08/09/19 05:20 Elliptocytes Not Reportable 08/09/19 05:20 Acanthocytes (Spur) Not Reportable 08/09/19 05:20 Rouleaux Not Reportable 08/09/19 05:20 Hemoglobin C Crystals Not Reportable 08/09/19 05:20 Schistocytes Not Reportable 08/09/19 05:20 Malaria parasites Not Reportable 08/09/19 05:20 Martir Bodies Not Reportable 08/09/19 05:20 Hem Pathologist Commnt No 08/09/19 05:20 PT 18.6 Sec. (12.2-14.9) H 08/08/19 21:15 INR 1.58 (0.87-1.13) H 08/08/19 21:15 APTT 32.1 Sec. (24.2-36.6) 08/08/19 21:15 D-Dimer 584.49 ng/mlDDU (0-234) H 08/07/19 15:27 POC ABG pH 7.289 (7.35-7.45) L 08/09/19 03:50 POC ABG pCO2 43.0 (35-45) 08/09/19 03:50 POC ABG pO2 153 (80-105) H 08/09/19 03:50 POC ABG HCO3 20.6 (22-26 mml/L) 08/09/19 03:50 POC ABG Total CO2 22 (23-27mmol/L) 08/09/19 03:50 POC ABG O2 Sat 99 08/09/19 03:50 POC ABG Base Excess -6 ((-2) - (+3)mmol/L) 08/09/19 03:50 FiO2 50 % 08/09/19 03:50 Sodium 143 mmol/L (137-145) 08/09/19 04:17 Potassium 4.5 mmol/L (3.6-5.0) 08/09/19 04:17 Chloride 103.9 mmol/L (98-107) 08/09/19 04:17 Carbon Dioxide 21 mmol/L (22-30) L 08/09/19 04:17 Anion Gap 23 mmol/L 08/09/19 04:17 BUN 30 mg/dL (7-17) H 08/09/19 04:17 Creatinine 2.4 mg/dL (0.7-1.2) H 08/09/19 04:17 Estimated GFR 24 ml/min 08/09/19 04:17 BUN/Creatinine Ratio 13 % 08/09/19 04:17 Glucose 21 mg/dL (65-100) L* 08/09/19 04:17 POC Glucose 162 (70-105) H 08/09/19 08:18 Calcium 7.1 mg/dL (8.4-10.2) L D 08/09/19 04:17 Total Bilirubin 1.40 mg/dL (0.1-1.2) H 08/08/19 20:45 AST 207 units/L (5-40) H 08/08/19 20:45 ALT 151 units/L (7-56) H 08/08/19 20:45 Alkaline Phosphatase 131 units/L (35-129) H 08/08/19 20:45 Ammonia 155.0 umol/L (25-60) H 08/08/19 21:15 Total Creatine Kinase 8304 units/L (30-135) H 08/09/19 04:17 CK-MB (CK-2) 86.1 ng/mL (0.0-4.0) H 08/09/19 04:17 CK-MB (CK-2) Rel Index 1.0 (0-4) 08/09/19 04:17 Troponin T 0.365 ng/mL (0.00-0.029) H* D 08/09/19 04:17 NT-Pro-B Natriuret Pep 202.8 pg/mL (0-900) 08/07/19 12:45 Total Protein 6.0 g/dL (6.3-8.2) L D 08/08/19 20:45 Albumin 2.9 g/dL (3.9-5) L 08/08/19 20:45 Albumin/Globulin Ratio 0.9 % 08/08/19 20:45 Triglycerides 112 mg/dL (2-149) 08/08/19 20:45 Cholesterol 152 mg/dL (50-199) 08/08/19 20:45 LDL Cholesterol Direct 101 mg/dL (50-130) 08/08/19 20:45 HDL Cholesterol 42 mg/dL (40-59) 08/08/19 20:45 Cholesterol/HDL Ratio 3.61 % 08/08/19 20:45 Urine Color Nancy (Yellow) 08/09/19 07:10 Urine Turbidity Cloudy (Clear) 08/09/19 07:10 Urine pH 6.0 (5.0-7.0) 08/09/19 07:10 Ur Specific [place] 1.014 (1.003-1.030) 08/09/19 07:10 Urine Protein 100 mg/dl mg/dL (Negative) 08/09/19 07:10 Urine Glucose (UA) 150 mg/dL (Negative) 08/09/19 07:10 Urine Ketones Neg mg/dL (Negative) 08/09/19 07:10 Urine Blood Lg (Negative) 08/09/19 07:10 Urine Nitrite Neg (Negative) 08/09/19 07:10 Urine Bilirubin Neg (Negative) 08/09/19 07:10 Urine Urobilinogen 4.0 mg/dL (<2.0) 08/09/19 07:10 Ur Leukocyte Esterase Neg (Negative) 08/09/19 07:10 Urine WBC (Auto) 8.0 /HPF (0.0-6.0) H 08/09/19 07:10 Urine RBC (Auto) 5.0 /HPF (0.0-6.0) 08/09/19 07:10 U Epithel Cells (Auto) 3.0 /HPF (0-13.0) 08/09/19 07:10 Urine Bacteria (Auto) 1+ /HPF (Negative) 08/09/19 07:10 Urine Mucus Few /HPF 08/09/19 07:10 Urine Yeast (Budding) 3+ /HPF 08/09/19 07:10 Active Medications - Current Medications Current Medications: Generic Name Dose Route Start Last Admin Trade Name Freq PRN Reason Stop Dose Admin Albuterol 2.5 mg 08/07/19 22:12 08/08/19 15:48 Proventil IH 2.5 mg Q4HRT PRN Administration Shortness Of Breath Dextrose 0 ml 08/09/19 03:03 D50w (25gm) Syringe IV Q30MIN PRN Hypoglycemia Protocol Gabapentin 300 mg 08/07/19 20:59 08/08/19 16:47 Gabapentin PO 300 mg BID PRN Administration PAIN (NERVE) Hydrophilic Ointment 1 applic 08/08/19 19:52 Vaseline Lip Therapy TP Q2HR PRN Dry Lips Propofol 1,000 mg in 100 mls @ 1.905 mls/hr 08/08/19 20:00 08/09/19 04:08 Diprivan 10 Mg/Ml IV 0 mcg/kg/min TITR CHRISTIAN 0 mls/hr Titration Protocol 5 MCG/KG/MIN Piperacillin Sod/Tazobactam Sod 2.25 gm in 50 mls @ 100 mls/hr 08/08/19 22:00 08/09/19 06:14 Zosyn/Ns 2.25 Gm/50ml IV 100 mls/hr Q8HR CHRISTIAN Administration Protocol Norepinephrine 4 mg in 250 mls @ 7.5 mls/hr 08/08/19 22:00 08/09/19 07:29 Levophed Drip 4 Mg/Ns 250 Ml IV 22 mcg/min TITR CHRISTIAN 82.5 mls/hr Titration Protocol 2 MCG/MIN Pantoprazole Sodium 80 mg/ 100 mls @ 10 mls/hr 08/09/19 04:00 08/09/19 04:52 Sodium Chloride IV 8 mg/hr DIRECT CHRISTIAN 10 mls/hr Administration 8 MG/HR Dextrose/Sodium Chloride 1,000 mls @ 75 mls/hr 08/09/19 05:00 08/09/19 04:54 D5/0.45ns IV 08/09/19 12:00 75 mls/hr DIRECT CHRISTIAN Administration Miscellaneous Medication 1 tab 08/08/19 10:00 Vit D3-Vit K/Berberine/Hops [Ostera Tablet] PO DAILY CHRISTIAN Multi-Ingred Cream/Lotion/Oil/Oint 1 applic 08/08/19 19:52 Artificial Tears Ophth Oint OU Q4HR PRN Dry Eye(s) Ondansetron HCl 4 mg 08/08/19 02:05 08/08/19 17:06 Zofran IV 4 mg Q8H PRN Administration Nausea And Vomiting Paroxetine HCl 20 mg 08/08/19 10:00 08/08/19 09:10 Paxil PO 20 mg DAILY CHRISTIAN Administration Pravastatin Sodium 20 mg 08/08/19 10:00 08/08/19 09:11 Pravachol PO 20 mg DAILY CHRISTIAN Administration Temazepam 30 mg 08/07/19 22:00 08/07/19 21:54 Restoril PO 30 mg HS CHRISTIAN Administration Nutrition/Malnutrition Assess - Dietary Evaluation Nutrition/Malnutrition Findings: Nutrition Notes Start: 08/08/19 11:34 Freq: Status: Active Protocol: Document 08/08/19 11:34 KS (Rec: 08/08/19 11:58 KS [id number]) Co-Sign 08/08/19 11:34 LP Nutrition Notes 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 Subjective/Other Information RN screen for skin risk. 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 Pt reports UBW of 144lbs and wt loss of 4lbs over past week . Wt in chart consistent with stated wt loss. Pt reports vomiting yesterday with persistent nausea. Pt only taking bites of tray and requests soup. Offered ONS but pt says Ensure "does not taste right." Burn Absent Trauma Absent GI Symptoms Nausea,Vomiting Minimum of two criteria Yes Energy Intake (non-severe) <75% Estimated Energy Requirement >7 days Interpretation of Weight Loss (severe) >2% in 1 week Reduced Business Law Professor Strength Measurably Reduced (severe) #1 Nutrition Diagnosis Malnutrition Etiology decreased appetite, unintended wt loss As Evidenced by Signs and Symptoms 2.7% wt loss <1 wk, reduced international accounting manager strength, pt meeting <75% for >2 wks Is patient on ventilator? No Is Patient Ambulatory and/or Out of Bed Yes [facility] [ [id number] [id number]] Calculation Used for Recommendations [facility] Additional Notes PRO: 76-95g/day (1.2-1.5g/kg/ day) Fluid: 1mL/kcal Nutrition Intervention Change Diet Order: Start full liquid diet Goal #1 Meet at least 75% of needs via PO intakes. Anticipated Discharge Needs: Consistent CHO diet Follow-Up By: 08/10/19 Additional Comments Follow for PO intakes
--- NOTE | 2019-08-09 08:43 | Event Note ---
Date: 08/09/19 5th [employer] at 0801 called with successful ACLS
[2019-08-09 08:53] LABS: Albumin 1.7 g/dL (3.9-5)
--- NOTE | 2019-08-09 10:26 | Gastroenterology Consultation ---
<PRISCILLA LIN - Last Filed: 08/09/19 10:29> History of Present Illness - Reason for Consult Consult date: 08/09/19 coffee-ground emesis Requesting physician: DANE BYRNE - History of Present Illness Patient is a 73 y/o female with PMH of COPD, DM, HTN, and GERD who presented to ED with c/o SOB and CP s/p a fall 2 days ago at home. Upon admission, she was found to have L1 compression fracture to which she was admitted, along with a cute on chronic hypoxic respiratory failure/COPD exacerbation. She is currently in critical condition in ICU on vent and pressor support s/o multiple cardiac arrest overnight and this am. GI has been consulted for coffee-ground emesis. Upon exam, patient noted to be nonresponsive with fixed pupils. Small amount of dark/blood tinged drainage from OGT noted. No hematemesis, melena, or hematochezia. On plavix at home. Prior GI history unknown. Past History Past Medical History: COPD, diabetes, hypertension Social history: smoking, full code Family history: CAD, diabetes, hypertension Medications and Allergies Allergies Allergy/AdvReac Type Severity Reaction Status Date / Time aspirin AdvReac Vomiting Verified 12/02/15 11:25 Sulfa (Sulfonamide AdvReac Hives;INCREASED Verified 12/18/13 06:28 Antibiotics) HEART RATE Home Medications Medication Instructions Recorded Confirmed Last Taken Type Clopidogrel Bisulfate [Plavix] 75 mg PO DAILY 12/18/13 08/07/19 12/01/15 History 75 mg Gabapentin [Neurontin] 300 mg PO BID PRN 12/18/13 08/07/19 12/01/15 History 300 mg Lisinopril [Zestril TAB] 20 mg PO DAILY 12/18/13 08/07/19 12/02/15 History 20 mg Temazepam [Restoril] 30 mg PO HS 12/18/13 08/07/19 12/01/15 History 30 mg Vit D3-Vit K/Berberine/Hops 1 tab PO DAILY 12/18/13 08/07/19 12/01/15 History [Ostera Tablet] 1 amLODIPine 10 mg PO DAILY 12/18/13 08/07/19 12/01/15 History 10 mg traMADoL [Ultram 50 MG tab] 100 mg PO DAILY PRN 12/18/13 08/07/19 12/02/15 Histo ry 100 mg Albuterol *Only Ed* [Proventil 2.5 mg IH DAILY 02/19/14 08/07/19 12/01/15 History 0.5% NEBS] 2.5mg Isosorbide Dinitrate 30 mg PO DAILY 12/02/15 08/07/19 12/01/15 History 30 mg Lansoprazole [Prevacid] 30 mg PO DAILY 12/02/15 08/07/19 12/01/15 History 30 mg PARoxetine [Paxil] 20 mg PO DAILY 12/02/15 08/07/19 12/02/15 History 20 mg Pravastatin [Pravachol] 20 mg PO DAILY 12/02/15 08/07/19 12/01/15 History 20 mg Active Meds: Active Medications Albuterol (Proventil) 2.5 mg IH Q4HRT PRN PRN Reason: Shortness Of Breath Last Admin: 08/08/19 15:48 Dose: 2.5 mg Documented by: Dextrose (D50w (25gm) Syringe) 0 ml IV Q30MIN PRN; Protocol PRN Reason: Hypoglycemia Hydrophilic Ointment (Vaseline Lip Therapy) 1 applic TP Q2HR PRN PRN Reason: Dry Lips Propofol (Diprivan 10 Mg/Ml) 1,000 mg in 100 mls @ 1.905 mls/hr IV TITR CHRISTIAN; Protocol Last Titration: 08/09/19 04:08 Dose: 0 mcg/kg/min, 0 mls/hr Documented by: Piperacillin Sod/Tazobactam Sod (Zosyn/Ns 2.25 Gm/50ml) 2.25 gm in 50 mls @ 100 mls/hr IV Q8HR CHRISTIAN; Protocol Last Admin: 08/09/19 06:14 Dose: 100 mls/hr Documented by: Norepinephrine (Levophed Drip 4 Mg/Ns 250 Ml) 4 mg in 250 mls @ 7.5 mls/hr IV TITR CHRISTIAN; Protocol Last Titration: 08/09/19 07:29 Dose: 22 mcg/min, 82.5 mls/hr Documented by: Pantoprazole Sodium 80 mg/ (Sodium Chloride) 100 mls @ 10 mls/hr IV DIRECT CHRISTIAN Last Admin: 08/09/19 04:52 Dose: 8 mg/hr, 10 mls/hr Documented by: Dextrose/Sodium Chloride (D5/0.45ns) 1,000 mls @ 75 mls/hr IV DIRECT CHRISTIAN Stop: 08/09/19 12:00 Last Admin: 08/09/19 04:54 Dose: 75 mls/hr Documented by: Sodium Bicarbonate 150 meq/ (Dextrose) 1,150 mls @ 150 mls/hr IV DIRECT CHRISTIAN Multi-Ingred Cream/Lotion/Oil/Oint (Artificial Tears Ophth Oint) 1 applic OU Q4HR PRN PRN Reason: Dry Eye(s) Ondansetron HCl (Zofran) 4 mg IV Q8H PRN PRN Reason: Nausea And Vomiting Last Admin: 08/08/19 17:06 Dose: 4 mg Documented by: Pravastatin Sodium (Pravachol) 20 mg PO DAILY CHRISTIAN Last Admin: 08/08/19 09:11 Dose: 20 mg Documented by: medications reviewed/updated as required Review of Systems - Review of Systems ROS unobtainable: due to endotracheal tube, due to mental status Exam - Constitutional Vital Signs: Temp Pulse Resp BP Pulse Ox 98.7 F 93 H 17 100/64 98 08/09/19 07:00 08/09/19 08:40 08/09/19 08:40 08/09/19 08:40 08/09/19 08:40 General appearance: other (critically ill in ICU, unresponsive on vent and pressor support) - EENT Eyes: other (pupils fixed) ENT: other (+ETT, +OGT with small amount of drainage) - Respiratory Respiratory: bilateral: diminished - Cardiovascular Rhythm: regular - Gastrointestinal General gastrointestinal: Present: soft, non-distended, hypoactive bowel sounds - Neurologic Neurological: other (unable to assess) - Labs CBC & Chem 7: 08/09/19 05:20 08/09/19 04:17 Lab Results: Laboratory Results - last 24 hr 08/08/19 08/08/19 08/08/19 19:59 20:45 20:45 WBC 6.7 RBC 3.77 Hgb 12.9 Hct 39.2 MCV 104 H MCH 34 H MCHC 33 RDW 18.2 H Plt Count 134 L Lymph % (Auto) 46.4 H [place] % (Auto) 1.8 Eos % (Auto) 0.2 Baso % (Auto) 0.4 Lymph # 3.1 Sullivan # 0.1 Eos # 0.0 Baso # 0.0 Add Manual Diff Total Counted Seg Neutrophils % 51.2 Seg Neuts % (Manual) Band Neutrophils % Lymphocytes % (Manual) Reactive Lymphs % (Man) Monocytes % (Manual) Eosinophils % (Manual) Basophils % (Manual) Metamyelocytes % Myelocytes % Promyelocytes % Blast Cells % Nucleated RBC % Seg Neutrophils # 3.4 Seg Neutrophils # Man Band Neutrophils # Lymphocytes # (Manual) Abs React Lymphs (Man) Monocytes # (Manual) Eosinophils # (Manual) Basophils # (Manual) Metamyelocytes # Myelocytes # Promyelocytes # Blast Cells # WBC Morphology Hypersegmented Neuts Hyposegmented Neuts Hypogranular Neuts Smudge Cells Toxic Granulation Toxic Vacuolation Dohle Bodies Pelger-Huet Anomaly Eb Rods Platelet Estimate Clumped Platelets Plt Clumps, EDTA Large Platelets Giant Platelets Platelet Satelliting Plt Morphology Comment RBC Morphology Dimorphic RBCs Polychromasia Hypochromasia Poikilocytosis Anisocytosis Microcytosis Macrocytosis Spherocytes Pappenheimer Bodies Sickle Cells Target Cells Tear Drop Cells Ovalocytes Helmet Cells [place] Bodies [place] Rings [place] Cells Bite Cells Crenated Cell Elliptocytes Acanthocytes (Spur) Rouleaux Hemoglobin C Crystals Schistocytes Malaria parasites Martir Bodies Hem Pathologist Commnt PT INR APTT POC ABG pH POC ABG pCO2 POC ABG pO2 POC ABG HCO3 POC ABG Total CO2 POC ABG O2 Sat POC ABG Base Excess FiO2 Sodium 148 H Potassium 4.1 Chloride 94.1 L Carbon Dioxide 20 L Anion Gap 38 BUN 27 H Creatinine 2.6 H D Estimated GFR 22 BUN/Creatinine Ratio 10 Glucose 105 H POC Glucose 182 H Calcium 9.5 Total Bilirubin 1.40 H Direct Bilirubin Indirect Bilirubin AST 207 H ALT 151 H Alkaline Phosphatase 131 H Ammonia Total Creatine Kinase CK-MB (CK-2) CK-MB (CK-2) Rel Index Troponin T 0.087 H D Total Protein 6.0 L D Albumin 2.9 L Albumin/Globulin Ratio 0.9 Triglycerides 112 Cholesterol 152 LDL Cholesterol Direct 101 HDL Cholesterol 42 Cholesterol/HDL Ratio 3.61 Urine Color Urine Turbidity Urine pH Ur Specific [place] Urine Protein Urine Glucose (UA) Urine Ketones Urine Blood Urine Nitrite Urine Bilirubin Urine Urobilinogen Ur Leukocyte Esterase Urine WBC (Auto) Urine RBC (Auto) U Epithel Cells (Auto) Urine Bacteria (Auto) Urine Mucus Urine Yeast (Budding) 08/08/19 08/08/19 08/08/19 20:45 20:48 20:58 WBC RBC Hgb Hct MCV MCH MCHC RDW Plt Count Lymph % (Auto) [place] % (Auto) Eos % (Auto) Baso % (Auto) Lymph # [place] # Eos # Baso # Add Manual Diff Total Counted Seg Neutrophils % Seg Neuts % (Manual) Band Neutrophils % Lymphocytes % (Manual) Reactive Lymphs % (Man) Monocytes % (Manual) Eosinophils % (Manual) Basophils % (Manual) Metamyelocytes % Myelocytes % Promyelocytes % Blast Cells % Nucleated RBC % Seg Neutrophils # Seg Neutrophils # Man Band Neutrophils # Lymphocytes # (Manual) Abs React Lymphs (Man) Monocytes # (Manual) Eosinophils # (Manual) Basophils # (Manual) Metamyelocytes # Myelocytes # Promyelocytes # Blast Cells # WBC Morphology Hypersegmented Neuts Hyposegmented Neuts Hypogranular Neuts Smudge Cells Toxic Granulation Toxic Vacuolation Dohle Bodies Pelger-Huet Anomaly Eb Rods Platelet Estimate Clumped Platelets Plt Clumps, EDTA Large Platelets Giant Platelets Platelet Satelliting Plt Morphology Comment RBC Morphology Dimorphic RBCs Polychromasia Hypochromasia Poikilocytosis Anisocytosis Microcytosis Macrocytosis Spherocytes Pappenheimer Bodies Sickle Cells Target Cells Tear Drop Cells Ovalocytes Helmet Cells [place] Bodies [place] Rings [place] Cells Bite Cells Crenated Cell Elliptocytes Acanthocytes (Spur) Rouleaux Hemoglobin C Crystals Schistocytes Malaria parasites Martir Bodies Hem Pathologist Commnt PT INR APTT POC ABG pH 7.163 L POC ABG pCO2 POC ABG pO2 POC ABG HCO3 30.0 POC ABG Total CO2 32 POC ABG O2 Sat 100 POC ABG Base Excess 1 FiO2 100 Sodium Potassium Chloride Carbon Dioxide Anion Gap BUN Creatinine Estimated GFR BUN/Creatinine Ratio Glucose POC Glucose 108 H Calcium Total Bilirubin Direct Bilirubin Indirect Bilirubin AST ALT Alkaline Phosphatase Ammonia Total Creatine Kinase 183 H CK-MB (CK-2) 4.8 H CK-MB (CK-2) Rel Index 2.6 Troponin T Total Protein Albumin Albumin/Globulin Ratio Triglycerides Cholesterol LDL Cholesterol Direct HDL Cholesterol Cholesterol/HDL Ratio Urine Color Urine Turbidity Urine pH Ur Specific [place] Urine Protein Urine Glucose (UA) Urine Ketones Urine Blood Urine Nitrite Urine Bilirubin Urine Urobilinogen Ur Leukocyte Esterase Urine WBC (Auto) Urine RBC (Auto) U Epithel Cells (Auto) Urine Bacteria (Auto) Urine Mucus Urine Yeast (Budding) 08/08/19 08/08/19 08/09/19 21:15 21:15 00:05 WBC RBC Hgb Hct MCV MCH MCHC RDW Plt Count Lymph % (Auto) [place] % (Auto) Eos % (Auto) Baso % (Auto) Lymph # [place] # Eos # Baso # Add Manual Diff Total Counted Seg Neutrophils % Seg Neuts % (Manual) Band Neutrophils % Lymphocytes % (Manual) Reactive Lymphs % (Man) Monocytes % (Manual) Eosinophils % (Manual) Basophils % (Manual) Metamyelocytes % Myelocytes % Promyelocytes % Blast Cells % Nucleated RBC % Seg Neutrophils # Seg Neutrophils # Man Band Neutrophils # Lymphocytes # (Manual) Abs React Lymphs (Man) Monocytes # (Manual) Eosinophils # (Manual) Basophils # (Manual) Metamyelocytes # Myelocytes # Promyelocytes # Blast Cells # WBC Morphology Hypersegmented Neuts Hyposegmented Neuts Hypogranular Neuts Smudge Cells Toxic Granulation Toxic Vacuolation Dohle Bodies Pelger-Huet Anomaly Eb Rods Platelet Estimate Clumped Platelets Plt Clumps, EDTA Large Platelets Giant Platelets Platelet Satelliting Plt Morphology Comment RBC Morphology Dimorphic RBCs Polychromasia Hypochromasia Poikilocytosis Anisocytosis Microcytosis Macrocytosis Spherocytes Pappenheimer Bodies Sickle Cells Target Cells Tear Drop Cells Ovalocytes Helmet Cells [place] Bodies [place] Rings [place] Cells Bite Cells Crenated Cell Elliptocytes Acanthocytes (Spur) Rouleaux Hemoglobin C Crystals Schistocytes Malaria parasites Martir Bodies Hem Pathologist Commnt PT 18.6 H INR 1.58 H APTT 32.1 POC ABG pH 7.290 L POC ABG pCO2 48.8 H POC ABG pO2 135 H POC ABG HCO3 23.5 POC ABG Total CO2 25 POC ABG O2 Sat 99 POC ABG Base Excess -3 FiO2 50 Sodium Potassium Chloride Carbon Dioxide Anion Gap BUN Creatinine Estimated GFR BUN/Creatinine Ratio Glucose POC Glucose Calcium Total Bilirubin Direct Bilirubin Indirect Bilirubin AST ALT Alkaline Phosphatase Ammonia 155.0 H Total Creatine Kinase CK-MB (CK-2) CK-MB (CK-2) Rel Index Troponin T Total Protein Albumin Albumin/Globulin Ratio Triglycerides Cholesterol LDL Cholesterol Direct HDL Cholesterol Cholesterol/HDL Ratio Urine Color Urine Turbidity Urine pH Ur Specific [place] Urine Protein Urine Glucose (UA) Urine Ketones Urine Blood Urine Nitrite Urine Bilirubin Urine Urobilinogen Ur Leukocyte Esterase Urine WBC (Auto) Urine RBC (Auto) U Epithel Cells (Auto) Urine Bacteria (Auto) Urine Mucus Urine Yeast (Budding) 08/09/19 08/09/19 08/09/19 00:26 02:34 03:50 WBC RBC Hgb Hct MCV MCH MCHC RDW Plt Count Lymph % (Auto) [place] % (Auto) Eos % (Auto) Baso % (Auto) Lymph # [place] # Eos # Baso # Add Manual Diff Total Counted Seg Neutrophils % Seg Neuts % (Manual) Band Neutrophils % Lymphocytes % (Manual) Reactive Lymphs % (Man) Monocytes % (Manual) Eosinophils % (Manual) Basophils % (Manual) Metamyelocytes % Myelocytes % Promyelocytes % Blast Cells % Nucleated RBC % Seg Neutrophils # Seg Neutrophils # Man Band Neutrophils # Lymphocytes # (Manual) Abs React Lymphs (Man) Monocytes # (Manual) Eosinophils # (Manual) Basophils # (Manual) Metamyelocytes # Myelocytes # Promyelocytes # Blast Cells # WBC Morphology Hypersegmented Neuts Hyposegmented Neuts Hypogranular Neuts Smudge Cells Toxic Granulation Toxic Vacuolation Dohle Bodies Pelger-Huet Anomaly Eb Rods Platelet Estimate Clumped Platelets Plt Clumps, EDTA Large Platelets Giant Platelets Platelet Satelliting Plt Morphology Comment RBC Morphology Dimorphic RBCs Polychromasia Hypochromasia Poikilocytosis Anisocytosis Microcytosis Macrocytosis Spherocytes Pappenheimer Bodies Sickle Cells Target Cells Tear Drop Cells Ovalocytes Helmet Cells [place] Bodies [place] Rings [place] Cells Bite Cells Crenated Cell Elliptocytes Acanthocytes (Spur) Rouleaux Hemoglobin C Crystals Schistocytes Malaria parasites Martir Bodies Hem Pathologist Commnt PT INR APTT POC ABG pH 7.289 L POC ABG pCO2 43.0 POC ABG pO2 153 H POC ABG HCO3 20.6 POC ABG Total CO2 22 POC ABG O2 Sat 99 POC ABG Base Excess -6 FiO2 50 Sodium Potassium Chloride Carbon Dioxide Anion Gap BUN Creatinine Estimated GFR BUN/Creatinine Ratio Glucose POC Glucose 48 L 72 Calcium Total Bilirubin Direct Bilirubin Indirect Bilirubin AST ALT Alkaline Phosphatase Ammonia Total Creatine Kinase CK-MB (CK-2) CK-MB (CK-2) Rel Index Troponin T Total Protein Albumin Albumin/Globulin Ratio Triglycerides Cholesterol LDL Cholesterol Direct HDL Cholesterol Cholesterol/HDL Ratio Urine Color Urine Turbidity Urine pH Ur Specific [place] Urine Protein Urine Glucose (UA) Urine Ketones Urine Blood Urine Nitrite Urine Bilirubin Urine Urobilinogen Ur Leukocyte Esterase Urine WBC (Auto) Urine RBC (Auto) U Epithel Cells (Auto) Urine Bacteria (Auto) Urine Mucus Urine Yeast (Budding) 08/09/19 08/09/19 08/09/19 04:17 04:17 04:17 WBC RBC Hgb Hct MCV MCH MCHC RDW Plt Count Lymph % (Auto) [place] % (Auto) Eos % (Auto) Baso % (Auto) Lymph # [place] # Eos # Baso # Add Manual Diff Total Counted Seg Neutrophils % Seg Neuts % (Manual) Band Neutrophils % Lymphocytes % (Manual) Reactive Lymphs % (Man) Monocytes % (Manual) Eosinophils % (Manual) Basophils % (Manual) Metamyelocytes % Myelocytes % Promyelocytes % Blast Cells % Nucleated RBC % Seg Neutrophils # Seg Neutrophils # Man Band Neutrophils # Lymphocytes # (Manual) Abs React Lymphs (Man) Monocytes # (Manual) Eosinophils # (Manual) Basophils # (Manual) Metamyelocytes # Myelocytes # Promyelocytes # Blast Cells # WBC Morphology Hypersegmented Neuts Hyposegmented Neuts Hypogranular Neuts Smudge Cells Toxic Granulation Toxic Vacuolation Dohle Bodies Pelger-Huet Anomaly Eb Rods Platelet Estimate Clumped Platelets Plt Clumps, EDTA Large Platelets Giant Platelets Platelet Satelliting Plt Morphology Comment RBC Morphology Dimorphic RBCs Polychromasia Hypochromasia Poikilocytosis Anisocytosis Microcytosis Macrocytosis Spherocytes Pappenheimer Bodies Sickle Cells Target Cells Tear Drop Cells Ovalocytes Helmet Cells [place] Bodies [place] Rings [place] Cells Bite Cells Crenated Cell Elliptocytes Acanthocytes (Spur) Rouleaux Hemoglobin C Crystals Schistocytes Malaria parasites Martir Bodies Hem Pathologist Commnt PT INR APTT POC ABG pH POC ABG pCO2 POC ABG pO2 POC ABG HCO3 POC ABG Total CO2 POC ABG O2 Sat POC ABG Base Excess FiO2 Sodium 143 Potassium 4.5 Chloride 103.9 Carbon Dioxide 21 L Anion Gap 23 BUN 30 H Creatinine 2.4 H Estimated GFR 24 BUN/Creatinine Ratio 13 Glucose 21 L* POC Glucose Calcium 7.1 L D Total Bilirubin Direct Bilirubin Indirect Bilirubin AST ALT Alkaline Phosphatase Ammonia Total Creatine Kinase 8304 H CK-MB (CK-2) 86.1 H CK-MB (CK-2) Rel Index 1.0 Troponin T 0.365 H* D Total Protein Albumin Albumin/Globulin Ratio Triglycerides Cholesterol LDL Cholesterol Direct HDL Cholesterol Cholesterol/HDL Ratio Urine Color Urine Turbidity Urine pH Ur Specific [place] Urine Protein Urine Glucose (UA) Urine Ketones Urine Blood Urine Nitrite Urine Bilirubin Urine Urobilinogen Ur Leukocyte Esterase Urine WBC (Auto) Urine RBC (Auto) U Epithel Cells (Auto) Urine Bacteria (Auto) Urine Mucus Urine Yeast (Budding) 08/09/19 08/09/19 08/09/19 04:24 05:06 05:20 WBC 2.2 L RBC 3.51 L Hgb 11.9 Hct 36.6 MCV 104 H MCH 34 H MCHC 33 RDW 18.4 H Plt Count 110 L Lymph % (Auto) [place] % (Auto) Eos % (Auto) Baso % (Auto) Lymph # [place] # Eos # Baso # Add Manual Diff Complete Total Counted 100 Seg Neutrophils % Seg Neuts % (Manual) 67.0 Band Neutrophils % 7.0 Lymphocytes % (Manual) 20.0 Reactive Lymphs % (Man) 0 Monocytes % (Manual) 6.0 Eosinophils % (Manual) 0 Basophils % (Manual) 0 Metamyelocytes % 0 Myelocytes % 0 Promyelocytes % 0 Blast Cells % 0 Nucleated RBC % Not Reportable Seg Neutrophils # Seg Neutrophils # Man 1.5 L Band Neutrophils # 0.2 Lymphocytes # (Manual) 0.4 L Abs React Lymphs (Man) 0.0 Monocytes # (Manual) 0.1 Eosinophils # (Manual) 0.0 Basophils # (Manual) 0.0 Metamyelocytes # 0.0 Myelocytes # 0.0 Promyelocytes # 0.0 Blast Cells # 0.0 WBC Morphology Not Reportable Hypersegmented Neuts Not Reportable Hyposegmented Neuts Not Reportable Hypogranular Neuts Not Reportable Smudge Cells Not Reportable Toxic Granulation Not Reportable Toxic Vacuolation Not Reportable Dohle Bodies Not Reportable Pelger-Huet Anomaly Not Reportable Eb Rods Not Reportable Platelet Estimate Consistent w auto Clumped Platelets Not Reportable Plt Clumps, EDTA Not Reportable Large Platelets Not Reportable Giant Platelets Not Reportable Platelet Satelliting Not Reportable Plt Morphology Comment Not Reportable RBC Morphology Not Reportable Dimorphic RBCs Not Reportable Polychromasia Not Reportable Hypochromasia Not Reportable Poikilocytosis Not Reportable Anisocytosis 1+ Microcytosis Not Reportable Macrocytosis Not Reportable Spherocytes Not Reportable Pappenheimer Bodies Not Reportable Sickle Cells Not Reportable Target Cells Not Reportable Tear Drop Cells Not Reportable Ovalocytes Not Reportable Helmet Cells Not Reportable [place] Bodies Not Reportable [place] Rings Not Reportable [place] Cells Not Reportable Bite Cells Not Reportable Crenated Cell Not Reportable Elliptocytes Not Reportable Acanthocytes (Spur) Not Reportable Rouleaux Not Reportable Hemoglobin C Crystals Not Reportable Schistocytes Not Reportable Malaria parasites Not Reportable Martir Bodies Not Reportable Hem Pathologist Commnt No PT INR APTT POC ABG pH POC ABG pCO2 POC ABG pO2 POC ABG HCO3 POC ABG Total CO2 POC ABG O2 Sat POC ABG Base Excess FiO2 Sodium Potassium Chloride Carbon Dioxide Anion Gap BUN Creatinine Estimated GFR BUN/Creatinine Ratio Glucose POC Glucose < 40 L 319 H Calcium Total Bilirubin Direct Bilirubin Indirect Bilirubin AST ALT Alkaline Phosphatase Ammonia Total Creatine Kinase CK-MB (CK-2) CK-MB (CK-2) Rel Index Troponin T Total Protein Albumin Albumin/Globulin Ratio Triglycerides Cholesterol LDL Cholesterol Direct HDL Cholesterol Cholesterol/HDL Ratio Urine Color Urine Turbidity Urine pH Ur Specific [place] Urine Protein Urine Glucose (UA) Urine Ketones Urine Blood Urine Nitrite Urine Bilirubin Urine Urobilinogen Ur Leukocyte Esterase Urine WBC (Auto) Urine RBC (Auto) U Epithel Cells (Auto) Urine Bacteria (Auto) Urine Mucus Urine Yeast (Budding) 08/09/19 08/09/19 08/09/19 06:15 07:10 07:12 WBC RBC Hgb Hct MCV MCH MCHC RDW Plt Count Lymph % (Auto) [place] % (Auto) Eos % (Auto) Baso % (Auto) Lymph # [place] # Eos # Baso # Add Manual Diff Total Counted Seg Neutrophils % Seg Neuts % (Manual) Band Neutrophils % Lymphocytes % (Manual) Reactive Lymphs % (Man) Monocytes % (Manual) Eosinophils % (Manual) Basophils % (Manual) Metamyelocytes % Myelocytes % Promyelocytes % Blast Cells % Nucleated RBC % Seg Neutrophils # Seg Neutrophils # Man Band Neutrophils # Lymphocytes # (Manual) Abs React Lymphs (Man) Monocytes # (Manual) Eosinophils # (Manual) Basophils # (Manual) Metamyelocytes # Myelocytes # Promyelocytes # Blast Cells # WBC Morphology Hypersegmented Neuts Hyposegmented Neuts Hypogranular Neuts Smudge Cells Toxic Granulation Toxic Vacuolation Dohle Bodies Pelger-Huet Anomaly Eb Rods Platelet Estimate Clumped Platelets Plt Clumps, EDTA Large Platelets Giant Platelets Platelet Satelliting Plt Morphology Comment RBC Morphology Dimorphic RBCs Polychromasia Hypochromasia Poikilocytosis Anisocytosis Microcytosis Macrocytosis Spherocytes Pappenheimer Bodies Sickle Cells Target Cells Tear Drop Cells Ovalocytes Helmet Cells [place] Bodies [place] Rings [place] Cells Bite Cells Crenated Cell Elliptocytes Acanthocytes (Spur) Rouleaux Hemoglobin C Crystals Schistocytes Malaria parasites Martir Bodies Hem Pathologist Commnt PT INR APTT POC ABG pH POC ABG pCO2 POC ABG pO2 POC ABG HCO3 POC ABG Total CO2 POC ABG O2 Sat POC ABG Base Excess FiO2 Sodium Potassium Chloride Carbon Dioxide Anion Gap BUN Creatinine Estimated GFR BUN/Creatinine Ratio Glucose POC Glucose 220 H 145 H Calcium Total Bilirubin Direct Bilirubin Indirect Bilirubin AST ALT Alkaline Phosphatase Ammonia Total Creatine Kinase CK-MB (CK-2) CK-MB (CK-2) Rel Index Troponin T Total Protein Albumin Albumin/Globulin Ratio Triglycerides Cholesterol LDL Cholesterol Direct HDL Cholesterol Cholesterol/HDL Ratio Urine Color Nancy Urine Turbidity Cloudy Urine pH 6.0 Ur Specific [place] 1.014 Urine Protein 100 mg/dl Urine Glucose (UA) 150 Urine Ketones Neg Urine Blood Lg Urine Nitrite Neg Urine Bilirubin Neg Urine Urobilinogen 4.0 Ur Leukocyte Esterase Neg Urine WBC (Auto) 8.0 H Urine RBC (Auto) 5.0 U Epithel Cells (Auto) 3.0 Urine Bacteria (Auto) 1+ Urine Mucus Few Urine Yeast (Budding) 3+ 08/09/19 08/09/19 08/09/19 08:18 08:19 09:17 WBC RBC Hgb Hct MCV MCH MCHC RDW Plt Count Lymph % (Auto) [place] % (Auto) Eos % (Auto) Baso % (Auto) Lymph # [place] # Eos # Baso # Add Manual Diff Total Counted Seg Neutrophils % Seg Neuts % (Manual) Band Neutrophils % Lymphocytes % (Manual) Reactive Lymphs % (Man) Monocytes % (Manual) Eosinophils % (Manual) Basophils % (Manual) Metamyelocytes % Myelocytes % Promyelocytes % Blast Cells % Nucleated RBC % Seg Neutrophils # Seg Neutrophils # Man Band Neutrophils # Lymphocytes # (Manual) Abs React Lymphs (Man) Monocytes # (Manual) Eosinophils # (Manual) Basophils # (Manual) Metamyelocytes # Myelocytes # Promyelocytes # Blast Cells # WBC Morphology Hypersegmented Neuts Hyposegmented Neuts Hypogranular Neuts Smudge Cells Toxic Granulation Toxic Vacuolation Dohle Bodies Pelger-Huet Anomaly Eb Rods Platelet Estimate Clumped Platelets Plt Clumps, EDTA Large Platelets Giant Platelets Platelet Satelliting Plt Morphology Comment RBC Morphology Dimorphic RBCs Polychromasia Hypochromasia Poikilocytosis Anisocytosis Microcytosis Macrocytosis Spherocytes Pappenheimer Bodies Sickle Cells Target Cells Tear Drop Cells Ovalocytes Helmet Cells [place] Bodies [place] Cells Bite Cells Crenated Cell Elliptocytes Acanthocytes (Spur) Rouleaux Hemoglobin C Crystals Schistocytes Malaria parasites Martir Bodies Hem Pathologist Commnt PT INR APTT POC ABG pH POC ABG pCO2 POC ABG pO2 POC ABG HCO3 POC ABG Total CO2 POC ABG O2 Sat POC ABG Base Excess FiO2 Sodium Potassium Chloride Carbon Dioxide Anion Gap BUN Creatinine Estimated GFR BUN/Creatinine Ratio Glucose POC Glucose 162 H 81 Calcium Total Bilirubin 1.40 H Direct Bilirubin 1.0 H Indirect Bilirubin 0.4 AST 3128 H ALT 3264 H Alkaline Phosphatase 149 H Ammonia Total Creatine Kinase CK-MB (CK-2) CK-MB (CK-2) Rel Index Troponin T 0.482 H* D Total Protein 4.0 L D Albumin 1.7 L Albumin/Globulin Ratio 0.7 Triglycerides Cholesterol LDL Cholesterol Direct HDL Cholesterol Cholesterol/HDL Ratio Urine Color Urine Turbidity Urine pH Ur Specific [place] Urine Protein Urine Glucose (UA) Urine Ketones Urine Blood Urine Nitrite Urine Bilirubin Urine Urobilinogen Ur Leukocyte Esterase Urine WBC (Auto) Urine RBC (Auto) U Epithel Cells (Auto) Urine Bacteria (Auto) Urine Mucus Urine Yeast (Budding) Assessment and Plan 1.coffee-ground emesis -H/H WNL (11.9/36.6) -continue to monitor H/H and transfuse as needed -small amount of dark/blood tinged drainage from OGT, no hematemesis, melena, or hematochezia -etiology-likely 2/2 trauma vs other -clinically, patient is currently critically ill in ICU, unresponsive on vent and pressor support s/p multiple cardiac arrests overnight and this am -no plan for scope at this time (patient too unstable at this time for EGD) unless overt bleeding develops -continue conservative management with PPI -hold blood thinning medications -continue supportive care -will follow <MOSHE MCNULTY - Last Filed: 08/09/19 13:42> Medications and Allergies Active Meds: Active Medications Albuterol (Proventil) 2.5 mg IH Q4HRT PRN PRN Reason: Shortness Of Breath Last Admin: 08/08/19 15:48 Dose: 2.5 mg Documented by: Dextrose (D50w (25gm) Syringe) 0 ml IV Q30MIN PRN; Protocol PRN Reason: Hypoglycemia Hydrophilic Ointment (Vaseline Lip Therapy) 1 applic TP Q2HR PRN PRN Reason: Dry Lips Propofol (Diprivan 10 Mg/Ml) 1,000 mg in 100 mls @ 1.905 mls/hr IV TITR CHRISTIAN; Protocol Last Titration: 08/09/19 10:58 Dose: 0 mcg/kg/min, 0 mls/hr Documented by: Piperacillin Sod/Tazobactam Sod (Zosyn/Ns 2.25 Gm/50ml) 2.25 gm in 50 mls @ 100 mls/hr IV Q8HR CHRISTIAN; Protocol Last Admin: 08/09/19 06:14 Dose: 100 mls/hr Documented by: Norepinephrine (Levophed Drip 4 Mg/Ns 250 Ml) 4 mg in 250 mls @ 7.5 mls/hr IV TITR CHRISTIAN; Protocol Last Titration: 08/09/19 07:29 Dose: 22 mcg/min, 82.5 mls/hr Documented by: Pantoprazole Sodium 80 mg/ (Sodium Chloride) 100 mls @ 10 mls/hr IV DIRECT CHRISTIAN Last Admin: 08/09/19 04:52 Dose: 8 mg/hr, 10 mls/hr Documented by: Sodium Bicarbonate 150 meq/ (Dextrose) 1,150 mls @ 150 mls/hr IV DIRECT CHRISTIAN Epinephrine 8 mg/ Sodium (Chloride) 250 mls @ 3.75 mls/hr IV TITR CHRISTIAN; Protocol Last Titration: 08/09/19 13:24 Dose: 6 mcg/min, 11.25 mls/hr Documented by: Multi-Ingred Cream/Lotion/Oil/Oint (Artificial Tears Ophth Oint) 1 applic OU Q4HR PRN PRN Reason: Dry Eye(s) Ondansetron HCl (Zofran) 4 mg IV Q8H PRN PRN Reason: Nausea And Vomiting Last Admin: 08/08/19 17:06 Dose: 4 mg Documented by: Pravastatin Sodium (Pravachol) 20 mg PO DAILY [facility] Last Admin: 08/08/19 09:11 Dose: 20 mg Documented by: Exam - Constitutional Vital Signs: Temp Pulse Resp BP Pulse Ox 98.7 F 54 L 18 70/35 88 08/09/19 07:00 08/09/19 12:53 08/09/19 12:10 08/09/19 12:53 08/09/19 12:53 - Labs CBC & Chem 7: 08/09/19 05:20 08/09/19 04:17 Lab Results: Laboratory Results - last 24 hr 08/08/19 08/08/19 08/08/19 19:59 20:45 20:45 WBC 6.7 RBC 3.77 Hgb 12.9 Hct 39.2 MCV 104 H MCH 34 H MCHC 33 RDW 18.2 H Plt Count 134 L Lymph % (Auto) 46.4 H [place] % (Auto) 1.8 Eos % (Auto) 0.2 Baso % (Auto) 0.4 Lymph # 3.1 [place] # 0.1 Eos # 0.0 Baso # 0.0 Add Manual Diff Total Counted Seg Neutrophils % 51.2 Seg Neuts % (Manual) Band Neutrophils % Lymphocytes % (Manual) Reactive Lymphs % (Man) Monocytes % (Manual) Eosinophils % (Manual) Basophils % (Manual) Metamyelocytes % Myelocytes % Promyelocytes % Blast Cells % Nucleated RBC % Seg Neutrophils # 3.4 Seg Neutrophils # Man Band Neutrophils # Lymphocytes # (Manual) Abs React Lymphs (Man) Monocytes # (Manual) Eosinophils # (Manual) Basophils # (Manual) Metamyelocytes # Myelocytes # Promyelocytes # Blast Cells # WBC Morphology Hypersegmented Neuts Hyposegmented Neuts Hypogranular Neuts Smudge Cells Toxic Granulation Toxic Vacuolation Dohle Bodies Pelger-Huet Anomaly Eb Rods Platelet Estimate Clumped Platelets Plt Clumps, EDTA Large Platelets Giant Platelets Platelet Satelliting Plt Morphology Comment RBC Morphology Dimorphic RBCs Polychromasia Hypochromasia Poikilocytosis Anisocytosis Microcytosis Macrocytosis Spherocytes Pappenheimer Bodies Sickle Cells Target Cells Tear Drop Cells Ovalocytes Helmet Cells [place] Bodies [place] Rings [place] Cells Bite Cells Crenated Cell Elliptocytes Acanthocytes (Spur) Rouleaux Hemoglobin C Crystals Schistocytes Malaria parasites Martir Bodies Hem Pathologist Commnt PT INR APTT POC ABG pH POC ABG pCO2 POC ABG pO2 POC ABG HCO3 POC ABG Total CO2 POC ABG O2 Sat POC ABG Base Excess FiO2 Sodium 148 H Potassium 4.1 Chloride 94.1 L Carbon Dioxide 20 L Anion Gap 38 BUN 27 H Creatinine 2.6 H D Estimated GFR 22 BUN/Creatinine Ratio 10 Glucose 105 H POC Glucose 182 H Calcium 9.5 Total Bilirubin 1.40 H Direct Bilirubin Indirect Bilirubin AST 207 H ALT 151 H Alkaline Phosphatase 131 H Ammonia Total Creatine Kinase CK-MB (CK-2) CK-MB (CK-2) Rel Index Troponin T 0.087 H D Total Protein 6.0 L D Albumin 2.9 L Albumin/Globulin Ratio 0.9 Triglycerides 112 Cholesterol 152 LDL Cholesterol Direct 101 HDL Cholesterol 42 Cholesterol/HDL Ratio 3.61 Urine Color Urine Turbidity Urine pH Ur Specific [place] Urine Protein Urine Glucose (UA) Urine Ketones Urine Blood Urine Nitrite Urine Bilirubin Urine Urobilinogen Ur Leukocyte Esterase Urine WBC (Auto) Urine RBC (Auto) U Epithel Cells (Auto) Urine Bacteria (Auto) Urine Mucus Urine Yeast (Budding) 08/08/19 08/08/19 08/08/19 20:45 20:48 20:58 WBC RBC Hgb Hct MCV MCH MCHC RDW Plt Count Lymph % (Auto) [place] % (Auto) Eos % (Auto) Baso % (Auto) Lymph # [place] # Eos # Baso # Add Manual Diff Total Counted Seg Neutrophils % Seg Neuts % (Manual) Band Neutrophils % Lymphocytes % (Manual) Reactive Lymphs % (Man) Monocytes % (Manual) Eosinophils % (Manual) Basophils % (Manual) Metamyelocytes % Myelocytes % Promyelocytes % Blast Cells % Nucleated RBC % Seg Neutrophils # Seg Neutrophils # Man Band Neutrophils # Lymphocytes # (Manual) Abs React Lymphs (Man) Monocytes # (Manual) Eosinophils # (Manual) Basophils # (Manual) Metamyelocytes # Myelocytes # Promyelocytes # Blast Cells # WBC Morphology Hypersegmented Neuts Hyposegmented Neuts Hypogranular Neuts Smudge Cells Toxic Granulation Toxic Vacuolation Dohle Bodies Pelger-Huet Anomaly Eb Rods Platelet Estimate Clumped Platelets Plt Clumps, EDTA Large Platelets Giant Platelets Platelet Satelliting Plt Morphology Comment RBC Morphology Dimorphic RBCs Polychromasia Hypochromasia Poikilocytosis Anisocytosis Microcytosis Macrocytosis Spherocytes Pappenheimer Bodies Sickle Cells Target Cells Tear Drop Cells Ovalocytes Helmet Cells [place] Bodies [place] Rings [place] Cells Bite Cells Crenated Cell Elliptocytes Acanthocytes (Spur) Rouleaux Hemoglobin C Crystals Schistocytes Malaria parasites Martir Bodies Hem Pathologist Commnt PT INR APTT POC ABG pH 7.163 L POC ABG pCO2 POC ABG pO2 POC ABG HCO3 30.0 POC ABG Total CO2 32 POC ABG O2 Sat 100 POC ABG Base Excess 1 FiO2 100 Sodium Potassium Chloride Carbon Dioxide Anion Gap BUN Creatinine Estimated GFR BUN/Creatinine Ratio Glucose POC Glucose 108 H Calcium Total Bilirubin Direct Bilirubin Indirect Bilirubin AST ALT Alkaline Phosphatase Ammonia Total Creatine Kinase 183 H CK-MB (CK-2) 4.8 H CK-MB (CK-2) Rel Index 2.6 Troponin T Total Protein Albumin Albumin/Globulin Ratio Triglycerides Cholesterol LDL Cholesterol Direct HDL Cholesterol Cholesterol/HDL Ratio Urine Color Urine Turbidity Urine pH Ur Specific [place] Urine Protein Urine Glucose (UA) Urine Ketones Urine Blood Urine Nitrite Urine Bilirubin Urine Urobilinogen Ur Leukocyte Esterase Urine WBC (Auto) Urine RBC (Auto) U Epithel Cells (Auto) Urine Bacteria (Auto) Urine Mucus Urine Yeast (Budding) 08/08/19 08/08/19 08/09/19 21:15 21:15 00:05 WBC RBC Hgb Hct MCV MCH MCHC RDW Plt Count Lymph % (Auto) [place] % (Auto) Eos % (Auto) Baso % (Auto) Lymph # [place] # Eos # Baso # Add Manual Diff Total Counted Seg Neutrophils % Seg Neuts % (Manual) Band Neutrophils % Lymphocytes % (Manual) Reactive Lymphs % (Man) Monocytes % (Manual) Eosinophils % (Manual) Basophils % (Manual) Metamyelocytes % Myelocytes % Promyelocytes % Blast Cells % Nucleated RBC % Seg Neutrophils # Seg Neutrophils # Man Band Neutrophils # Lymphocytes # (Manual) Abs React Lymphs (Man) Monocytes # (Manual) Eosinophils # (Manual) Basophils # (Manual) Metamyelocytes # Myelocytes # Promyelocytes # Blast Cells # WBC Morphology Hypersegmented Neuts Hyposegmented Neuts Hypogranular Neuts Smudge Cells Toxic Granulation Toxic Vacuolation Dohle Bodies Pelger-Huet Anomaly Eb Rods Platelet Estimate Clumped Platelets Plt Clumps, EDTA Large Platelets Giant Platelets Platelet Satelliting Plt Morphology Comment RBC Morphology Dimorphic RBCs Polychromasia Hypochromasia Poikilocytosis Anisocytosis Microcytosis Macrocytosis Spherocytes Pappenheimer Bodies Sickle Cells Target Cells Tear Drop Cells Ovalocytes Helmet Cells [place] Bodies [place] Rings [place] Cells Bite Cells Crenated Cell Elliptocytes Acanthocytes (Spur) Rouleaux Hemoglobin C Crystals Schistocytes Malaria parasites Martir Bodies Hem Pathologist Commnt PT 18.6 H INR 1.58 H APTT 32.1 POC ABG pH 7.290 L POC ABG pCO2 48.8 H POC ABG pO2 135 H POC ABG HCO3 23.5 POC ABG Total CO2 25 POC ABG O2 Sat 99 POC ABG Base Excess -3 FiO2 50 Sodium Potassium Chloride Carbon Dioxide Anion Gap BUN Creatinine Estimated GFR BUN/Creatinine Ratio Glucose POC Glucose Calcium Total Bilirubin Direct Bilirubin Indirect Bilirubin AST ALT Alkaline Phosphatase Ammonia 155.0 H Total Creatine Kinase CK-MB (CK-2) CK-MB (CK-2) Rel Index Troponin T Total Protein Albumin Albumin/Globulin Ratio Triglycerides Cholesterol LDL Cholesterol Direct HDL Cholesterol Cholesterol/HDL Ratio Urine Color Urine Turbidity Urine pH Ur Specific [place] Urine Protein Urine Glucose (UA) Urine Ketones Urine Blood Urine Nitrite Urine Bilirubin Urine Urobilinogen Ur Leukocyte Esterase Urine WBC (Auto) Urine RBC (Auto) U Epithel Cells (Auto) Urine Bacteria (Auto) Urine Mucus Urine Yeast (Budding) 08/09/19 08/09/19 08/09/19 00:26 02:34 03:50 WBC RBC Hgb Hct MCV MCH MCHC RDW Plt Count Lymph % (Auto) [place] % (Auto) Eos % (Auto) Baso % (Auto) Lymph # [place] # Eos # Baso # Add Manual Diff Total Counted Seg Neutrophils % Seg Neuts % (Manual) Band Neutrophils % Lymphocytes % (Manual) Reactive Lymphs % (Man) Monocytes % (Manual) Eosinophils % (Manual) Basophils % (Manual) Metamyelocytes % Myelocytes % Promyelocytes % Blast Cells % Nucleated RBC % Seg Neutrophils # Seg Neutrophils # Man Band Neutrophils # Lymphocytes # (Manual) Abs React Lymphs (Man) Monocytes # (Manual) Eosinophils # (Manual) Basophils # (Manual) Metamyelocytes # Myelocytes # Promyelocytes # Blast Cells # WBC Morphology Hypersegmented Neuts Hyposegmented Neuts Hypogranular Neuts Smudge Cells Toxic Granulation Toxic Vacuolation Dohle Bodies Pelger-Huet Anomaly Eb Rods Platelet Estimate Clumped Platelets Plt Clumps, EDTA Large Platelets Giant Platelets Platelet Satelliting Plt Morphology Comment RBC Morphology Dimorphic RBCs Polychromasia Hypochromasia Poikilocytosis Anisocytosis Microcytosis Macrocytosis Spherocytes Pappenheimer Bodies Sickle Cells Target Cells Tear Drop Cells Ovalocytes Helmet Cells [place] Bodies [place] Cells Bite Cells Crenated Cell Elliptocytes Acanthocytes (Spur) Rouleaux Hemoglobin C Crystals Schistocytes Malaria parasites Martir Bodies Hem Pathologist Commnt PT INR APTT POC ABG pH 7.289 L POC ABG pCO2 43.0 POC ABG pO2 153 H POC ABG HCO3 20.6 POC ABG Total CO2 22 POC ABG O2 Sat 99 POC ABG Base Excess -6 FiO2 50 Sodium Potassium Chloride Carbon Dioxide Anion Gap BUN Creatinine Estimated GFR BUN/Creatinine Ratio Glucose POC Glucose 48 L 72 Calcium Total Bilirubin Direct Bilirubin Indirect Bilirubin AST ALT Alkaline Phosphatase Ammonia Total Creatine Kinase CK-MB (CK-2) CK-MB (CK-2) Rel Index Troponin T Total Protein Albumin Albumin/Globulin Ratio Triglycerides Cholesterol LDL Cholesterol Direct HDL Cholesterol Cholesterol/HDL Ratio Urine Color Urine Turbidity Urine pH Ur Specific [place] Urine Protein Urine Glucose (UA) Urine Ketones Urine Blood Urine Nitrite Urine Bilirubin Urine Urobilinogen Ur Leukocyte Esterase Urine WBC (Auto) Urine RBC (Auto) U Epithel Cells (Auto) Urine Bacteria (Auto) Urine Mucus Urine Yeast (Budding) 08/09/19 08/09/19 08/09/19 04:17 04:17 04:17 WBC RBC Hgb Hct MCV MCH MCHC RDW Plt Count Lymph % (Auto) [place] % (Auto) Eos % (Auto) Baso % (Auto) Lymph # [place] # Eos # Baso # Add Manual Diff Total Counted Seg Neutrophils % Seg Neuts % (Manual) Band Neutrophils % Lymphocytes % (Manual) Reactive Lymphs % (Man) Monocytes % (Manual) Eosinophils % (Manual) Basophils % (Manual) Metamyelocytes % Myelocytes % Promyelocytes % Blast Cells % Nucleated RBC % Seg Neutrophils # Seg Neutrophils # Man Band Neutrophils # Lymphocytes # (Manual) Abs React Lymphs (Man) Monocytes # (Manual) Eosinophils # (Manual) Basophils # (Manual) Metamyelocytes # Myelocytes # Promyelocytes # Blast Cells # WBC Morphology Hypersegmented Neuts Hyposegmented Neuts Hypogranular Neuts Smudge Cells Toxic Granulation Toxic Vacuolation Dohle Bodies Pelger-Huet Anomaly Eb Rods Platelet Estimate Clumped Platelets Plt Clumps, EDTA Large Platelets Giant Platelets Platelet Satelliting Plt Morphology Comment RBC Morphology Dimorphic RBCs Polychromasia Hypochromasia Poikilocytosis Anisocytosis Microcytosis Macrocytosis Spherocytes Pappenheimer Bodies Sickle Cells Target Cells Tear Drop Cells Ovalocytes Helmet Cells [place] Bodies [place] Cells Bite Cells Crenated Cell Elliptocytes Acanthocytes (Spur) Rouleaux Hemoglobin C Crystals Schistocytes Malaria parasites Martir Bodies Hem Pathologist Commnt PT INR APTT POC ABG pH POC ABG pCO2 POC ABG pO2 POC ABG HCO3 POC ABG Total CO2 POC ABG O2 Sat POC ABG Base Excess FiO2 Sodium 143 Potassium 4.5 Chloride 103.9 Carbon Dioxide 21 L Anion Gap 23 BUN 30 H Creatinine 2.4 H Estimated GFR 24 BUN/Creatinine Ratio 13 Glucose 21 L* POC Glucose Calcium 7.1 L D Total Bilirubin Direct Bilirubin Indirect Bilirubin AST ALT Alkaline Phosphatase Ammonia Total Creatine Kinase 8304 H CK-MB (CK-2) 86.1 H CK-MB (CK-2) Rel Index 1.0 Troponin T 0.365 H* D Total Protein Albumin Albumin/Globulin Ratio Triglycerides Cholesterol LDL Cholesterol Direct HDL Cholesterol Cholesterol/HDL Ratio Urine Color Urine Turbidity Urine pH Ur Specific [place] Urine Protein Urine Glucose (UA) Urine Ketones Urine Blood Urine Nitrite Urine Bilirubin Urine Urobilinogen Ur Leukocyte Esterase Urine WBC (Auto) Urine RBC (Auto) U Epithel Cells (Auto) Urine Bacteria (Auto) Urine Mucus Urine Yeast (Budding) 08/09/19 08/09/19 08/09/19 04:24 05:06 05:20 WBC 2.2 L RBC 3.51 L Hgb 11.9 Hct 36.6 MCV 104 H MCH 34 H MCHC 33 RDW 18.4 H Plt Count 110 L Lymph % (Auto) [place] % (Auto) Eos % (Auto) Baso % (Auto) Lymph # [place] # Eos # Baso # Add Manual Diff Complete Total Counted 100 Seg Neutrophils % Seg Neuts % (Manual) 67.0 Band Neutrophils % 7.0 Lymphocytes % (Manual) 20.0 Reactive Lymphs % (Man) 0 Monocytes % (Manual) 6.0 Eosinophils % (Manual) 0 Basophils % (Manual) 0 Metamyelocytes % 0 Myelocytes % 0 Promyelocytes % 0 Blast Cells % 0 Nucleated RBC % Not Reportable Seg Neutrophils # Seg Neutrophils # Man 1.5 L Band Neutrophils # 0.2 Lymphocytes # (Manual) 0.4 L Abs React Lymphs (Man) 0.0 Monocytes # (Manual) 0.1 Eosinophils # (Manual) 0.0 Basophils # (Manual) 0.0 Metamyelocytes # 0.0 Myelocytes # 0.0 Promyelocytes # 0.0 Blast Cells # 0.0 WBC Morphology Not Reportable Hypersegmented Neuts Not Reportable Hyposegmented Neuts Not Reportable Hypogranular Neuts Not Reportable Smudge Cells Not Reportable Toxic Granulation Not Reportable Toxic Vacuolation Not Reportable Dohle Bodies Not Reportable Pelger-Huet Anomaly Not Reportable Eb Rods Not Reportable Platelet Estimate Consistent w auto Clumped Platelets Not Reportable Plt Clumps, EDTA Not Reportable Large Platelets Not Reportable Giant Platelets Not Reportable Platelet Satelliting Not Reportable Plt Morphology Comment Not Reportable RBC Morphology Not Reportable Dimorphic RBCs Not Reportable Polychromasia Not Reportable Hypochromasia Not Reportable Poikilocytosis Not Reportable Anisocytosis 1+ Microcytosis Not Reportable Macrocytosis Not Reportable Spherocytes Not Reportable Pappenheimer Bodies Not Reportable Sickle Cells Not Reportable Target Cells Not Reportable Tear Drop Cells Not Reportable Ovalocytes Not Reportable Helmet Cells Not Reportable [place] Bodies Not Reportable [place] Not Reportable [place] Cells Not Reportable Bite Cells Not Reportable Crenated Cell Not Reportable Elliptocytes Not Reportable Acanthocytes (Spur) Not Reportable Rouleaux Not Reportable Hemoglobin C Crystals Not Reportable Schistocytes Not Reportable Malaria parasites Not Reportable Martir Bodies Not Reportable Hem Pathologist Commnt No PT INR APTT POC ABG pH POC ABG pCO2 POC ABG pO2 POC ABG HCO3 POC ABG Total CO2 POC ABG O2 Sat POC ABG Base Excess FiO2 Sodium Potassium Chloride Carbon Dioxide Anion Gap BUN Creatinine Estimated GFR BUN/Creatinine Ratio Glucose POC Glucose < 40 L 319 H Calcium Total Bilirubin Direct Bilirubin Indirect Bilirubin AST ALT Alkaline Phosphatase Ammonia Total Creatine Kinase CK-MB (CK-2) CK-MB (CK-2) Rel Index Troponin T Total Protein Albumin Albumin/Globulin Ratio Triglycerides Cholesterol LDL Cholesterol Direct HDL Cholesterol Cholesterol/HDL Ratio Urine Color Urine Turbidity Urine pH Ur Specific [place] Urine Protein Urine Glucose (UA) Urine Ketones Urine Blood Urine Nitrite Urine Bilirubin Urine Urobilinogen Ur Leukocyte Esterase Urine WBC (Auto) Urine RBC (Auto) U Epithel Cells (Auto) Urine Bacteria (Auto) Urine Mucus Urine Yeast (Budding) 08/09/19 08/09/19 08/09/19 06:15 07:10 07:12 WBC RBC Hgb Hct MCV MCH MCHC RDW Plt Count Lymph % (Auto) [place] % (Auto) Eos % (Auto) Baso % (Auto) Lymph # [place] # Eos # Baso # Add Manual Diff Total Counted Seg Neutrophils % Seg Neuts % (Manual) Band Neutrophils % Lymphocytes % (Manual) Reactive Lymphs % (Man) Monocytes % (Manual) Eosinophils % (Manual) Basophils % (Manual) Metamyelocytes % Myelocytes % Promyelocytes % Blast Cells % Nucleated RBC % Seg Neutrophils # Seg Neutrophils # Man Band Neutrophils # Lymphocytes # (Manual) Abs React Lymphs (Man) Monocytes # (Manual) Eosinophils # (Manual) Basophils # (Manual) Metamyelocytes # Myelocytes # Promyelocytes # Blast Cells # WBC Morphology Hypersegmented Neuts Hyposegmented Neuts Hypogranular Neuts Smudge Cells Toxic Granulation Toxic Vacuolation Dohle Bodies Pelger-Huet Anomaly Eb Rods Platelet Estimate Clumped Platelets Plt Clumps, EDTA Large Platelets Giant Platelets Platelet Satelliting Plt Morphology Comment RBC Morphology Dimorphic RBCs Polychromasia Hypochromasia Poikilocytosis Anisocytosis Microcytosis Macrocytosis Spherocytes Pappenheimer Bodies Sickle Cells Target Cells Tear Drop Cells Ovalocytes Helmet Cells [place] Bodies [place] Cells Bite Cells Crenated Cell Elliptocytes Acanthocytes (Spur) Rouleaux Hemoglobin C Crystals Schistocytes Malaria parasites Martir Bodies Hem Pathologist Commnt PT INR APTT POC ABG pH POC ABG pCO2 POC ABG pO2 POC ABG HCO3 POC ABG Total CO2 POC ABG O2 Sat POC ABG Base Excess FiO2 Sodium Potassium Chloride Carbon Dioxide Anion Gap BUN Creatinine Estimated GFR BUN/Creatinine Ratio Glucose POC Glucose 220 H 145 H Calcium Total Bilirubin Direct Bilirubin Indirect Bilirubin AST ALT Alkaline Phosphatase Ammonia Total Creatine Kinase CK-MB (CK-2) CK-MB (CK-2) Rel Index Troponin T Total Protein Albumin Albumin/Globulin Ratio Triglycerides Cholesterol LDL Cholesterol Direct HDL Cholesterol Cholesterol/HDL Ratio Urine Color Nancy Urine Turbidity Cloudy Urine pH 6.0 Ur Specific [place] 1.014 Urine Protein 100 mg/dl Urine Glucose (UA) 150 Urine Ketones Neg Urine Blood Lg Urine Nitrite Neg Urine Bilirubin Neg Urine Urobilinogen 4.0 Ur Leukocyte Esterase Neg Urine WBC (Auto) 8.0 H Urine RBC (Auto) 5.0 U Epithel Cells (Auto) 3.0 Urine Bacteria (Auto) 1+ Urine Mucus Few Urine Yeast (Budding) 3+ 08/09/19 08/09/19 08/09/19 08:18 08:19 09:17 WBC RBC Hgb Hct MCV MCH MCHC RDW Plt Count Lymph % (Auto) [place] % (Auto) Eos % (Auto) Baso % (Auto) Lymph # [place] # Eos # Baso # Add Manual Diff Total Counted Seg Neutrophils % Seg Neuts % (Manual) Band Neutrophils % Lymphocytes % (Manual) Reactive Lymphs % (Man) Monocytes % (Manual) Eosinophils % (Manual) Basophils % (Manual) Metamyelocytes % Myelocytes % Promyelocytes % Blast Cells % Nucleated RBC % Seg Neutrophils # Seg Neutrophils # Man Band Neutrophils # Lymphocytes # (Manual) Abs React Lymphs (Man) Monocytes # (Manual) Eosinophils # (Manual) Basophils # (Manual) Metamyelocytes # Myelocytes # Promyelocytes # Blast Cells # WBC Morphology Hypersegmented Neuts Hyposegmented Neuts Hypogranular Neuts Smudge Cells Toxic Granulation Toxic Vacuolation Dohle Bodies Pelger-Huet Anomaly Eb Rods Platelet Estimate Clumped Platelets Plt Clumps, EDTA Large Platelets Giant Platelets Platelet Satelliting Plt Morphology Comment RBC Morphology Dimorphic RBCs Polychromasia Hypochromasia Poikilocytosis Anisocytosis Microcytosis Macrocytosis Spherocytes Pappenheimer Bodies Sickle Cells Target Cells Tear Drop Cells Ovalocytes Helmet Cells [place] Bodies [place] Cells Bite Cells Crenated Cell Elliptocytes Acanthocytes (Spur) Rouleaux Hemoglobin C Crystals Schistocytes Malaria parasites Martir Bodies Hem Pathologist Commnt PT INR APTT POC ABG pH POC ABG pCO2 POC ABG pO2 POC ABG HCO3 POC ABG Total CO2 POC ABG O2 Sat POC ABG Base Excess FiO2 Sodium Potassium Chloride Carbon Dioxide Anion Gap BUN Creatinine Estimated GFR BUN/Creatinine Ratio Glucose POC Glucose 162 H 81 Calcium Total Bilirubin 1.40 H Direct Bilirubin 1.0 H Indirect Bilirubin 0.4 AST 3128 H ALT 3264 H Alkaline Phosphatase 149 H Ammonia Total Creatine Kinase CK-MB (CK-2) CK-MB (CK-2) Rel Index Troponin T 0.482 H* D Total Protein 4.0 L D Albumin 1.7 L Albumin/Globulin Ratio 0.7 Triglycerides Cholesterol LDL Cholesterol Direct HDL Cholesterol Cholesterol/HDL Ratio Urine Color Urine Turbidity Urine pH Ur Specific [place] Urine Protein Urine Glucose (UA) Urine Ketones Urine Blood Urine Nitrite Urine Bilirubin Urine Urobilinogen Ur Leukocyte Esterase Urine WBC (Auto) Urine RBC (Auto) U Epithel Cells (Auto) Urine Bacteria (Auto) Urine Mucus Urine Yeast (Budding) 08/09/19 08/09/19 08/09/19 10:04 11:21 12:21 WBC RBC Hgb Hct MCV MCH MCHC RDW Plt Count Lymph % (Auto) [place] % (Auto) Eos % (Auto) Baso % (Auto) Lymph # [place] # Eos # Baso # Add Manual Diff Total Counted Seg Neutrophils % Seg Neuts % (Manual) Band Neutrophils % Lymphocytes % (Manual) Reactive Lymphs % (Man) Monocytes % (Manual) Eosinophils % (Manual) Basophils % (Manual) Metamyelocytes % Myelocytes % Promyelocytes % Blast Cells % Nucleated RBC % Seg Neutrophils # Seg Neutrophils # Man Band Neutrophils # Lymphocytes # (Manual) Abs React Lymphs (Man) Monocytes # (Manual) Eosinophils # (Manual) Basophils # (Manual) Metamyelocytes # Myelocytes # Promyelocytes # Blast Cells # WBC Morphology Hypersegmented Neuts Hyposegmented Neuts Hypogranular Neuts Smudge Cells Toxic Granulation Toxic Vacuolation Dohle Bodies Pelger-Huet Anomaly Eb Rods Platelet Estimate Clumped Platelets Plt Clumps, EDTA Large Platelets Giant Platelets Platelet Satelliting Plt Morphology Comment RBC Morphology Dimorphic RBCs Polychromasia Hypochromasia Poikilocytosis Anisocytosis Microcytosis Macrocytosis Spherocytes Pappenheimer Bodies Sickle Cells Target Cells Tear Drop Cells Ovalocytes Helmet Cells [place] Bodies [place] Cells Bite Cells Crenated Cell Elliptocytes Acanthocytes (Spur) Rouleaux Hemoglobin C Crystals Schistocytes Malaria parasites Martir Bodies Hem Pathologist Commnt PT INR APTT POC ABG pH POC ABG pCO2 POC ABG pO2 POC ABG HCO3 POC ABG Total CO2 POC ABG O2 Sat POC ABG Base Excess FiO2 Sodium Potassium Chloride Carbon Dioxide Anion Gap BUN Creatinine Estimated GFR BUN/Creatinine Ratio Glucose POC Glucose 72 230 H 202 H Calcium Total Bilirubin Direct Bilirubin Indirect Bilirubin AST ALT Alkaline Phosphatase Ammonia Total Creatine Kinase CK-MB (CK-2) CK-MB (CK-2) Rel Index Troponin T Total Protein Albumin Albumin/Globulin Ratio Triglycerides Cholesterol LDL Cholesterol Direct HDL Cholesterol Cholesterol/HDL Ratio Urine Color Urine Turbidity Urine pH Ur Specific [place] Urine Protein Urine Glucose (UA) Urine Ketones Urine Blood Urine Nitrite Urine Bilirubin Urine Urobilinogen Ur Leukocyte Esterase Urine WBC (Auto) Urine RBC (Auto) U Epithel Cells (Auto) Urine Bacteria (Auto) Urine Mucus Urine Yeast (Budding) Assessment and Plan Pt seen. Being coded at present with chest compressions. Goals of care in question. Will follow and be available if further evaluation warranted, ie - with exsanguinating bleed, or medical stability.
[2019-08-09] MEDS ORDERED: SODIUM BICARBONATE 150 MEQ in DEXTROSE 5% IN WATER 1,000 ML IV SCH (11:00)
--- NOTE | 2019-08-09 11:55 | Event Note ---
Date: 08/09/19 6th Code garry called. ACLS initiated. Patient went asystolic, I called off ACLS but patient started gulpie breathing, ACLS resumed, pulse restored. Then I met grandson Sharad and cousin Sergio outside room. They will speak with Irene about continuing ACLS
[2019-08-09] MEDS ORDERED: EPINEPHrine 1:1000 8 MG in SODIUM CHLORIDE 0.9% 250ML 242 ML IV SCH ×2 (12:00)
--- NOTE | 2019-08-09 12:57 | Progress Note ---
<COLBY ANDERSON - Last Filed: 08/09/19 13:00> Assessment and Plan s/p Cardiac arrest Stat echo at the bedside reveals normal LV and RV function with no evidence of pericardial effusion CTA chest showed no PE Recent fall Emphysema with heavy smoking history Acute renal failure Metabolic acidosis Shock liver with elevated ammonia levels Non-specific troponin Supportive cardiac management. Subjective Date of service: 08/09/19 Interval history: Patient remains unresponsive on the vent. Objective Vital Signs Temp Pulse Pulse Pulse Pulse Resp Resp 08/09/19 12:10 54 L 18 08/09/19 12:00 54 L 15 08/09/19 11:50 55 L 25 H 08/09/19 11:40 56 L 12 08/09/19 11:30 58 L 5 L 08/09/19 11:20 58 L 9 L 08/09/19 11:10 57 L 5 L 08/09/19 11:00 60 9 L 08/09/19 10:50 62 15 08/09/19 10:40 62 16 08/09/19 10:30 64 21 08/09/19 10:20 70 22 08/09/19 10:10 84 30 H 08/09/19 10:00 124 H 08/09/19 09:50 49 L 13 08/09/19 09:40 81 12 08/09/19 09:30 89 20 08/09/19 09:20 87 9 L 08/09/19 09:10 87 12 08/09/19 09:00 88 20 08/09/19 08:50 90 24 08/09/19 08:40 93 H 17 08/09/19 08:30 84 16 08/09/19 08:20 82 25 H 08/09/19 08:10 137 H 88 H 08/09/19 08:00 203 H 98 H 08/09/19 07:50 64 24 08/09/19 07:40 71 24 08/09/19 07:30 85 24 08/09/19 07:22 85 08/09/19 07:20 85 24 08/09/19 07:10 86 22 08/09/19 07:00 98.7 F 90 24 08/09/19 06:50 103 H 25 H 08/09/19 06:40 108 H 24 08/09/19 06:30 112 H 22 08/09/19 06:20 114 H 20 08/09/19 06:10 117 H 25 H 08/09/19 06:00 117 H 24 08/09/19 05:50 119 H 22 08/09/19 05:40 119 H 25 H 08/09/19 05:30 121 H 26 H 08/09/19 05:20 121 H 24 08/09/19 05:10 118 H 25 H 08/09/19 05:00 117 H 24 08/09/19 04:50 112 H 19 08/09/19 04:40 103 H 21 08/09/19 04:30 97 H 13 08/09/19 04:20 96 H 24 08/09/19 04:10 159 H 100 H 08/09/19 04:00 137 H 117 H 12 08/09/19 03:50 116 H 18 08/09/19 03:44 96.3 F L 08/09/19 03:40 122 H 19 08/09/19 03:30 124 H 25 H 08/09/19 03:20 128 H 24 08/09/19 03:18 138 H 08/09/19 03:10 134 H 41 H 08/09/19 03:00 136 H 40 H 08/09/19 02:50 132 H 41 H 08/09/19 02:40 127 H 40 H 08/09/19 02:30 121 H 41 H 08/09/19 02:20 115 H 42 H 08/09/19 02:10 111 H 48 H 08/09/19 02:00 117 H 24 08/09/19 01:50 115 H 24 08/09/19 01:40 134 H 24 08/09/19 01:30 139 H 24 08/09/19 01:20 134 H 30 H 08/09/19 01:10 130 H 24 08/09/19 01:00 130 H 25 H 08/09/19 00:50 134 H 40 H 08/09/19 00:40 116 H 23 08/09/19 00:35 143 H 08/09/19 00:30 117 H 32 H 08/09/19 00:20 128 H 44 H 08/09/19 00:10 123 H 39 H 08/09/19 00:00 121 H 120 H 122 H 35 H 08/08/19 23:50 130 H 24 08/08/19 23:40 120 H 23 08/08/19 23:30 120 H 15 08/08/19 23:20 118 H 24 08/08/19 23:10 113 H 16 08/08/19 23:00 111 H 25 H 08/08/19 22:50 115 H 20 08/08/19 22:44 112 H 112 H 23 08/08/19 22:40 112 H 28 H 08/08/19 22:30 121 H 29 H 08/08/19 22:20 119 H 28 H 08/08/19 22:10 123 H 28 H 08/08/19 22:00 124 H 29 H 08/08/19 21:50 131 H 16 08/08/19 21:40 136 H 27 H 08/08/19 21:30 95.3 F L 131 H 13 08/08/19 21:20 142 H 16 08/08/19 21:10 88 19 08/08/19 21:00 97 H 18 08/08/19 20:50 110 H 15 08/08/19 20:40 112 H 18 08/08/19 20:30 91 H 19 08/08/19 20:20 94 H 18 08/08/19 20:15 63 08/08/19 20:12 96 H 19 08/08/19 19:11 105 H 08/08/19 17:27 20 08/08/19 15:48 96 H 19 08/08/19 12:56 98.0 F 115 H 20 BP Pulse Ox 08/09/19 12:10 70/35 08/09/19 12:00 70/35 08/09/19 11:50 70/35 08/09/19 11:40 75/40 08/09/19 11:30 70/45 08/09/19 11:20 65/41 08/09/19 11:10 62/38 88 08/09/19 11:00 78/48 08/09/19 10:50 79/52 93 08/09/19 10:40 83/39 08/09/19 10:30 96/46 96 08/09/19 10:20 111/60 100 08/09/19 10:10 160/60 100 08/09/19 10:00 46/25 36 L 08/09/19 09:50 08/09/19 09:40 143/117 08/09/19 09:30 219/127 08/09/19 09:20 66/24 92 08/09/19 09:10 59/20 08/09/19 09:00 91/56 98 08/09/19 08:50 91/56 99 08/09/19 08:40 100/64 98 08/09/19 08:30 101/67 100 08/09/19 08:20 168/46 100 08/09/19 08:10 198/50 87 08/09/19 08:00 100/57 79 L 08/09/19 07:50 100/57 93 08/09/19 07:40 100/57 08/09/19 07:30 100/57 08/09/19 07:22 109/63 96 08/09/19 07:20 107/40 08/09/19 07:10 63/31 97 08/09/19 07:00 88/37 100 08/09/19 06:50 84/63 94 08/09/19 06:40 200/151 97 08/09/19 06:30 133/109 97 08/09/19 06:20 134/78 96 08/09/19 06:10 95/77 97 08/09/19 06:00 08/09/19 05:50 102/51 97 08/09/19 05:40 97 08/09/19 05:30 112/57 97 08/09/19 05:20 121/66 97 08/09/19 05:10 120/69 98 08/09/19 05:00 109/68 97 08/09/19 04:50 120/59 97 08/09/19 04:40 112/56 98 08/09/19 04:30 58/39 99 08/09/19 04:20 58/39 100 08/09/19 04:10 58/39 50 L 08/09/19 04:00 58/39 98 08/09/19 03:50 58/39 97 08/09/19 03:44 08/09/19 03:40 58/39 98 08/09/19 03:30 60/42 97 08/09/19 03:20 119/75 98 08/09/19 03:18 97 08/09/19 03:10 134/59 97 08/09/19 03:00 134/92 98 12/04/19 02:50 153/81 98 12/04/19 02:40 140/89 98 08/09/19 02:30 118/53 98 08/09/19 02:20 107/69 99 08/09/19 02:10 100/77 99 08/09/19 02:00 100/77 77 L 08/09/19 01:50 100/77 83 L 08/09/19 01:40 79/57 08/09/19 01:30 68/55 99 08/09/19 01:20 132/82 98 08/09/19 01:10 131/79 98 08/09/19 01:00 101/77 99 08/09/19 00:50 96/70 98 08/09/19 00:40 104/77 99 08/09/19 00:35 98 08/09/19 00:30 129/53 100 08/09/19 00:20 121/69 97 08/09/19 00:10 118/74 98 08/09/19 00:00 107/75 98 08/08/19 23:50 94/62 98 08/08/19 23:40 118/74 99 08/08/19 23:30 104/78 100 08/08/19 23:20 103/70 99 08/08/19 23:10 111/63 100 08/08/19 23:00 117/71 99 08/08/19 22:50 111/69 100 08/08/19 22:44 100 08/08/19 22:40 129/60 100 08/08/19 22:30 112/62 99 08/08/19 22:20 115/54 99 08/08/19 22:10 90/60 99 08/08/19 22:00 91/53 97 08/08/19 21:50 94/49 97 08/08/19 21:40 90/61 100 08/08/19 21:30 79/35 08/08/19 21:20 163/113 97 08/08/19 21:10 142/93 68 L 08/08/19 21:00 131/70 08/08/19 20:50 131/70 08/08/19 20:40 143/122 100 08/08/19 20:30 100 08/08/19 20:20 100 08/08/19 20:15 100 12/03/19 20:12 08/08/19 19:11 102/71 90 08/08/19 17:27 08/08/19 15:48 08/08/19 12:56 90/48 94 - Physical Examination General: Other (unresponsive on the vent) Cardiac: Positive: Reg Rate and Rhythm - Labs and Meds Cardiac Enzymes 08/08/19 08/08/19 08/09/19 Range/Units 20:45 20:45 04:17 AST 207 H (5-40) units/L CK-MB (CK-2) 4.8 H 86.1 H (0.0-4.0) ng/mL 08/09/19 Range/Units 08:19 AST 3128 H (5-40) units/L CK-MB (CK-2) (0.0-4.0) ng/mL Coagulation 08/08/19 Range/Units 21:15 PT 18.6 H (12.2-14.9) Sec. INR 1.58 H (0.87-1.13) APTT 32.1 (24.2-36.6) Sec. Lipids 08/08/19 Range/Units 20:45 Triglycerides 112 (2-149) mg/dL Cholesterol 152 (50-199) mg/dL HDL Cholesterol 42 (40-59) mg/dL Cholesterol/HDL Ratio 3.61 % CBC 08/08/19 08/09/19 Range/Units 20:45 05:20 WBC 6.7 2.2 L (4.5-11.0) K/mm3 RBC 3.77 3.51 L (3.65-5.03) M/mm3 Hgb 12.9 11.9 (10.1-14.3) gm/dl Hct 39.2 36.6 (30.3-42.9) % Plt Count 134 L 110 L (140-440) K/mm3 Lymph # 3.1 (1.2-5.4) K/mm3 [place] # 0.1 (0.0-0.8) K/mm3 Eos # 0.0 (0.0-0.4) K/mm3 Baso # 0.0 (0.0-0.1) K/mm3 Comprehensive Metabolic Panel 08/08/19 08/09/19 08/09/19 Range/Units 20:45 04:17 08:19 Sodium 148 H 143 (137-145) mmol/L Potassium 4.1 4.5 (3.6-5.0) mmol/L Chloride 94.1 L 103.9 (98-107) mmol/L Carbon Dioxide 20 L 21 L (22-30) mmol/L BUN 27 H 30 H (7-17) mg/dL Creatinine 2.6 H D 2.4 H (0.7-1.2) mg/dL Glucose 105 H 21 L* (65-100) mg/dL Calcium 9.5 7.1 L D (8.4-10.2) mg/dL Direct Bilirubin 1.0 H (0-0.2) mg/dL Indirect Bilirubin 0.4 mg/dL AST 207 H 3128 H (5-40) units/L ALT 151 H 3264 H (7-56) units/L Alkaline Phosphatase 131 H 149 H (35-129) units/L Total Protein 6.0 L D 4.0 L D (6.3-8.2) g/dL Albumin 2.9 L 1.7 L (3.9-5) g/dL <JASVIR SAUREZ - Last Filed: 08/09/19 15:16> Assessment and Plan I've seen and evaluated the patient agree with the assessment and plan. Patient presented to the hospital after a recent 5 foot fall resulting in multiple fractures. Additionally the patient has a history of emphysema, acute renal failure, shock liver, and metabolic acidosis. These things have likely resulted in recent cardiac arrest. Cardiology is consulted for evaluation. Echocardiogram is pending. Review of the telemetry shows at the patient has had periods of ventricular tachycardia and atrial fibrillation as well as ventricular fibrillation. At this time cannot treat the patient with antiarrhythmics including amiodarone due to renal and hepatic failure. Recommend keep potassium greater than 4 magnesium greater than 2. Patient has a recent cardiac cath which showed no significant cardiovascular disease. Continue supportive care. Objective Vital Signs Temp Pulse Pulse Pulse Pulse Resp Resp 08/09/19 13:40 0 L 08/09/19 13:30 38 L 21 08/09/19 13:20 62 21 08/09/19 13:10 24 08/09/19 13:00 60 24 08/09/19 12:53 54 L 08/09/19 12:50 55 L 24 08/09/19 12:40 52 L 11 L 08/09/19 12:30 52 L 24 08/09/19 12:20 40 L 24 08/09/19 12:10 54 L 18 08/09/19 12:00 54 L 117 H 15 08/09/19 11:50 55 L 25 H 08/09/19 11:40 56 L 12 08/09/19 11:30 58 L 5 L 08/09/19 11:20 58 L 9 L 08/09/19 11:10 57 L 5 L 08/09/19 11:00 60 9 L 08/09/19 10:50 62 15 08/09/19 10:40 62 16 08/09/19 10:30 64 21 08/09/19 10:20 70 22 08/09/19 10:10 84 30 H 08/09/19 10:00 124 H 117 H 08/09/19 09:50 49 L 13 08/09/19 09:40 81 12 08/09/19 09:30 89 20 08/09/19 09:20 87 9 L 08/09/19 09:10 87 12 08/09/19 09:00 88 20 08/09/19 08:50 90 24 08/09/19 08:40 93 H 17 08/09/19 08:30 84 16 08/09/19 08:20 82 25 H 08/09/19 08:10 137 H 88 H 08/09/19 08:00 203 H 117 H 98 H 08/09/19 07:50 64 24 08/09/19 07:40 71 24 08/09/19 07:30 85 24 08/09/19 07:22 85 08/09/19 07:20 85 24 08/09/19 07:10 86 22 08/09/19 07:00 98.7 F 90 24 08/09/19 06:50 103 H 25 H 08/09/19 06:40 108 H 24 08/09/19 06:30 112 H 22 08/09/19 06:20 114 H 20 08/09/19 06:10 117 H 25 H 08/09/19 06:00 117 H 24 08/09/19 05:50 119 H 22 08/09/19 05:40 119 H 25 H 08/09/19 05:30 121 H 26 H 08/09/19 05:20 121 H 24 08/09/19 05:10 118 H 25 H 08/09/19 05:00 117 H 24 08/09/19 04:50 112 H 19 08/09/19 04:40 103 H 21 08/09/19 04:30 97 H 13 08/09/19 04:20 96 H 24 08/09/19 04:10 159 H 100 H 08/09/19 04:00 137 H 117 H 12 08/09/19 03:50 116 H 18 08/09/19 03:44 96.3 F L 08/09/19 03:40 122 H 19 08/09/19 03:30 124 H 25 H 08/09/19 03:20 128 H 24 08/09/19 03:18 138 H 08/09/19 03:10 134 H 41 H 08/09/19 03:00 136 H 40 H 08/09/19 02:50 132 H 41 H 08/09/19 02:40 127 H 40 H 08/09/19 02:30 121 H 41 H 08/09/19 02:20 115 H 42 H 08/09/19 02:10 111 H 48 H 08/09/19 02:00 117 H 24 08/09/19 01:50 115 H 24 08/09/19 01:40 134 H 24 08/09/19 01:30 139 H 24 08/09/19 01:20 134 H 30 H 08/09/19 01:10 130 H 24 08/09/19 01:00 130 H 25 H 08/09/19 00:50 134 H 40 H 08/09/19 00:40 116 H 23 08/09/19 00:35 143 H 08/09/19 00:30 117 H 32 H 08/09/19 00:20 128 H 44 H 08/09/19 00:10 123 H 39 H 08/09/19 00:00 121 H 120 H 122 H 35 H 08/08/19 23:50 130 H 24 08/08/19 23:40 120 H 23 08/08/19 23:30 120 H 15 08/08/19 23:20 118 H 24 08/08/19 23:10 113 H 16 08/08/19 23:00 111 H 25 H 08/08/19 22:50 115 H 20 08/08/19 22:44 112 H 112 H 23 08/08/19 22:40 112 H 28 H 08/08/19 22:30 121 H 29 H 08/08/19 22:20 119 H 28 H 08/08/19 22:10 123 H 28 H 08/08/19 22:00 124 H 29 H 08/08/19 21:50 131 H 16 08/08/19 21:40 136 H 27 H 08/08/19 21:30 95.3 F L 131 H 13 08/08/19 21:20 142 H 16 08/08/19 21:10 88 19 08/08/19 21:00 97 H 18 08/08/19 20:50 110 H 15 08/08/19 20:40 112 H 18 08/08/19 20:30 91 H 19 08/08/19 20:20 94 H 18 08/08/19 20:15 63 08/08/19 20:12 96 H 19 08/08/19 19:11 105 H 08/08/19 17:27 20 08/08/19 15:48 96 H 19 BP Pulse Ox 08/09/19 13:40 64/38 08/09/19 13:30 64/34 08/09/19 13:20 64/34 08/09/19 13:10 62/35 08/09/19 13:00 62/35 08/09/19 12:53 70/35 88 08/09/19 12:50 62/34 08/09/19 12:40 55/33 08/09/19 12:30 80/48 08/09/19 12:20 71/32 08/09/19 12:10 70/35 08/09/19 12:00 70/35 97 08/09/19 11:50 70/35 08/09/19 11:40 75/40 08/09/19 11:30 70/45 08/09/19 11:20 65/41 08/09/19 11:10 62/38 88 08/09/19 11:00 78/48 08/09/19 10:50 79/52 93 08/09/19 10:40 83/39 08/09/19 10:30 96/46 96 08/09/19 10:20 111/60 100 08/09/19 10:10 160/60 100 08/09/19 10:00 46/25 97 08/09/19 09:50 08/09/19 09:40 143/117 08/09/19 09:30 219/127 08/09/19 09:20 66/24 92 08/09/19 09:10 59/20 08/09/19 09:00 91/56 98 08/09/19 08:50 91/56 99 08/09/19 08:40 100/64 98 08/09/19 08:30 101/67 100 08/09/19 08:20 168/46 100 08/09/19 08:10 198/50 87 08/09/19 08:00 100/57 97 08/09/19 07:50 100/57 93 08/09/19 07:40 100/57 08/09/19 07:30 100/57 08/09/19 07:22 109/63 96 08/09/19 07:20 107/40 08/09/19 07:10 63/31 97 08/09/19 07:00 88/37 100 08/09/19 06:50 84/63 94 08/09/19 06:40 200/151 97 08/09/19 06:30 133/109 97 08/09/19 06:20 134/78 96 08/09/19 06:10 95/77 97 08/09/19 06:00 08/09/19 05:50 102/51 97 08/09/19 05:40 97 08/09/19 05:30 112/57 97 08/09/19 05:20 121/66 97 08/09/19 05:10 120/69 98 08/09/19 05:00 109/68 97 08/09/19 04:50 120/59 97 08/09/19 04:40 112/56 98 08/09/19 04:30 58/39 99 08/09/19 04:20 58/39 100 08/09/19 04:10 58/39 50 L 08/09/19 04:00 58/39 98 08/09/19 03:50 58/39 97 08/09/19 03:44 08/09/19 03:40 58/39 98 08/09/19 03:30 60/42 97 08/09/19 03:20 119/75 98 08/09/19 03:18 97 08/09/19 03:10 134/59 97 08/09/19 03:00 134/92 98 08/09/19 02:50 153/81 98 08/09/19 02:40 140/89 98 08/09/19 02:30 118/53 98 08/09/19 02:20 107/69 99 08/09/19 02:10 100/77 99 08/09/19 02:00 100/77 77 L 08/09/19 01:50 100/77 83 L 08/09/19 01:40 79/57 08/09/19 01:30 68/55 99 08/09/19 01:20 132/82 98 08/09/19 01:10 131/79 98 08/09/19 01:00 101/77 99 08/09/19 00:50 96/70 98 08/09/19 00:40 104/77 99 08/09/19 00:35 98 08/09/19 00:30 129/53 100 08/09/19 00:20 121/69 97 08/09/19 00:10 118/74 98 08/09/19 00:00 107/75 98 08/08/19 23:50 94/62 98 08/08/19 23:40 118/74 99 08/08/19 23:30 104/78 100 08/08/19 23:20 103/70 99 08/08/19 23:10 111/63 100 08/08/19 23:00 117/71 99 08/08/19 22:50 111/69 100 08/08/19 22:44 100 08/08/19 22:40 129/60 100 08/08/19 22:30 112/62 99 08/08/19 22:20 115/54 99 08/08/19 22:10 90/60 99 08/08/19 22:00 91/53 97 08/08/19 21:50 94/49 97 08/08/19 21:40 90/61 100 08/08/19 21:30 79/35 08/08/19 21:20 163/113 97 08/08/19 21:10 142/93 68 L 08/08/19 21:00 131/70 08/08/19 20:50 131/70 08/08/19 20:40 143/122 100 08/08/19 20:30 100 08/08/19 20:20 100 08/08/19 20:15 100 08/08/19 20:12 08/08/19 19:11 102/71 90 08/08/19 17:27 08/08/19 15:48 - Labs and Meds Cardiac Enzymes 08/08/19 08/08/19 08/09/19 Range/Units 20:45 20:45 04:17 AST 207 H (5-40) units/L CK-MB (CK-2) 4.8 H 86.1 H (0.0-4.0) ng/mL 08/09/19 Range/Units 08:19 AST 3128 H (5-40) units/L CK-MB (CK-2) (0.0-4.0) ng/mL Coagulation 08/08/19 Range/Units 21:15 PT 18.6 H (12.2-14.9) Sec. INR 1.58 H (0.87-1.13) APTT 32.1 (24.2-36.6) Sec. Lipids 08/08/19 Range/Units 20:45 Triglycerides 112 (2-149) mg/dL Cholesterol 152 (50-199) mg/dL HDL Cholesterol 42 (40-59) mg/dL Cholesterol/HDL Ratio 3.61 % CBC 08/08/19 08/09/19 Range/Units 20:45 05:20 WBC 6.7 2.2 L (4.5-11.0) K/mm3 RBC 3.77 3.51 L (3.65-5.03) M/mm3 Hgb 12.9 11.9 (10.1-14.3) gm/dl Hct 39.2 36.6 (30.3-42.9) % Plt Count 134 L 110 L (140-440) K/mm3 Lymph # 3.1 (1.2-5.4) K/mm3 [place] # 0.1 (0.0-0.8) K/mm3 Eos # 0.0 (0.0-0.4) K/mm3 Baso # 0.0 (0.0-0.1) K/mm3 Comprehensive Metabolic Panel 08/08/19 08/09/19 08/09/19 Range/Units 20:45 04:17 08:19 Sodium 148 H 143 (137-145) mmol/L Potassium 4.1 4.5 (3.6-5.0) mmol/L Chloride 94.1 L 103.9 (98-107) mmol/L Carbon Dioxide 20 L 21 L (22-30) mmol/L BUN 27 H 30 H (7-17) mg/dL Creatinine 2.6 H D 2.4 H (0.7-1.2) mg/dL Glucose 105 H 21 L* (65-100) mg/dL Calcium 9.5 7.1 L D (8.4-10.2) mg/dL Direct Bilirubin 1.0 H (0-0.2) mg/dL Indirect Bilirubin 0.4 mg/dL AST 207 H 3128 H (5-40) units/L ALT 151 H 3264 H (7-56) units/L Alkaline Phosphatase 131 H 149 H (35-129) units/L Total Protein 6.0 L D 4.0 L D (6.3-8.2) g/dL Albumin 2.9 L 1.7 L (3.9-5) g/dL
[2019-08-09 13:50] VITALS: BP 64/38
--- NOTE | 2019-08-09 14:09 | Event Note ---
Date: 08/09/19 7th or 8th Cardiac arrest Code blue called. Patient in PEA, chest compression started. Then patient went into asystole. ACLS stopped, 1343. I pronounced 1350. I spoke grandson Sharad, then Radha (patient's sister)
--- NOTE | 2019-08-09 14:18 | Death Summary ---
Summary - Providers Date of service: 08/09/19 Consults: 08/08/19 08:46 Physical Therapy Evaluation and Treat [CONS] Routine Comment: Reason For Exam: Weakness 08/08/19 19:52 Consult to Dietitian/Nutrition [CONS] Routine Physician Instructions: Reason For Exam: Reason for Consult: Evaluate nutritional intake Consult to Physician [CONS] Routine Comment: Consulting Provider: SCARLET FUENTES Physician Instructions: Reason For Exam: icu admission 08/09/19 02:27 Consult to Physician [CONS] Routine Comment: Consulting Provider: ANA RUFFIN Physician Instructions: Reason For Exam: s/p cardiac arrest 08/09/19 02:28 Consult to Physician [CONS] Routine Comment: Consulting Provider: DINORA PARISI Physician Instructions: Reason For Exam: GI bleed, hx GERD on protonix gtt Attending: LINO LEIVA - summary Date of admission: 08/08/19 14:30 Date of : 08/09/19 Significant findings: Patient is a 73-year-old woman with a history of COPD, diabetes, hypertension, tobacco dependency and GERD who presented to [facility] ED after fall 2 days ago and worsening SOB. She was admitted in Observation for COPD exacerbation on 08/07/19. She had cardiac arrest on 08/08/19. On 08/08/19, she vomited coffee ground emesis then had Cardiac PEA arrest. I had multiple conversations with the family. Patient had one son and he was to Irene and they have 2 children, Evelyn and Sharad. After the 7th or 8th cardiac arrest with PEA, she had asystole at 1343. * XR spine lumbosacral 2-3V FINDINGS: BONES/JOINT(S): There is a mild approximately 25% superior endplate compression fracture of L1. This is age- indeterminate but is definitely new compared with 01/08/2016. Vertebral body heights otherwise appear maintained within normal limits. There is similar moderate degenerative disc disease at T12-L1 and L1-L2 with disc height loss and reactive endplate sclerosis and osteophyte formation. There is unchanged grade 1 anterolisthesis of L4 and L5. * THORACIC SPINE 3 VIEWS ADDITIONAL FINDINGS: Osteopenia. IMPRESSION: 1. No significant abnormality. * CT head without contrast: No acute findings * CHEST 1 VIEW 1. No acute findings. * CTA chest IMPRESSION: 1. No CT evidence for pulmonary embolism. 2. Emphysema with bibasilar opacities likely to be related to atelectasis. PEA Cardiac arrest most likely hypoxic related due to end stage COPD, poor prognosis Acute on chronic hypoxic respiratory failure, current pulse ox was 87% on 2 liters, improved with nasal suctioning to 90% Acute COPD exacerbation: treat with iv steroids, nebs, o2, abx (wasn't started on admission) Tobacco use disorder, counseling provided Traumatic L1 Compression Fracture after fall: Pain control, Outpatient follow-up w/ Ortho Surgery Diabete Mellitus type 2- monitor blood sugar levels Hypertension- Resume antihypertensive medications DVT prophylaxis- Lovenox I pronounced at 1350. Patient pupils fixed and dilated, no breath sounds no heart tones, no pupillary reaction. Time of 1350 Cause of : COPD related to tobacco
--- NOTE | 2019-08-09 15:50 | Event Note ---
Date: 08/09/19 Consulted on patient overnight for cardiac arrest on floor. Patient has since coded 5-6 times since the initial code. Discussed on Multidisciplinary rounds and plan was to speak with family again and continue supportive measures. Subsequently patient coded again, asystole and not able to resuscitate. Code stopped and patient . CCT 31 minutes.
== END 2019-08-09 16:00 | DRG 208 ==
LOC: ED 10:59 → 2B-ACE 14:30 → OBSVTOIN 08-08 14:30 → CC1 08-08 20:47
PROVIDERS: ADMIT Internal Medicine; ATTEND Internal Medicine
PROC: 5A1935Z Respiratory Ventilation, Less than 24 Consecutive Hours (ICD-10-PCS; 2019-08-08)
PROC: 0BH17EZ Insertion of Endotracheal Airway into Trachea, Via Natural or Artificial Opening (ICD-10-PCS; 2019-08-08)
PROC: 4A033R1 Measurement of Arterial Saturation, Peripheral, Percutaneous Approach (ICD-10-PCS; principal; 2019-08-09)
DX: J96.21 Acute and chronic respiratory failure with hypoxia (principal); K72.00 Acute and subacute hepatic failure without coma; S32.019A Unspecified fracture of first lumbar vertebra, initial encounter for closed fracture; N17.9 Acute kidney failure, unspecified; E87.2 Acidosis; J98.11 Atelectasis; I47.1 Supraventricular tachycardia; I46.8 Cardiac arrest due to other underlying condition; I10 Essential (primary) hypertension; E11.9 Type 2 diabetes mellitus without complications; F17.200 Nicotine dependence, unspecified, uncomplicated; K21.9 Gastro-esophageal reflux disease without esophagitis; M19.90 Unspecified osteoarthritis, unspecified site; I16.0 Hypertensive urgency; J43.9 Emphysema, unspecified; Z71.6 Tobacco abuse counseling; Y93.89 Activity, other specified; Y92.89 Other specified places as the place of occurrence of the external cause; Y99.8 Other external cause status; Z82.49 Family history of ischemic heart disease and other diseases of the circulatory system; Z83.3 Family history of diabetes mellitus; Z88.6 Allergy status to analgesic agent; Z88.2 Allergy status to sulfonamides; Z79.899 Other long term (current) drug therapy; Z90.49 Acquired absence of other specified parts of digestive tract
CPT/HCPCS: 31500; 36415; 36600; 70450; 71045; 71275; 72070; 72100; 72125; 74018; 80048; 80053; 80061; 80076; 81001; 82140; 82550; 82553; 82803; 82962; 83880; 84484; 85007; 85025; 85379; 85610; 85730; 87040; 87070; 87205; 93005; 93010; 93308; 93321; 93325; 94002; 94003; 94640; 94644; 94760; G0378; A9270-GY; C9113; J0171; J0360; J0461; J2270; J2405; J2543; J2704; J2765; J3370; J7030; J7050; J7070; Q9967